=== PATIENT | female | born 1945 | race Caucasian/White ===

== ENCOUNTER 2018-05-22 07:12 | Day surgery (SDC) | payer MEDICARE, OTHER ==
[~2018-05-22] VITALS: Ht 162.6 cm; Wt 90.7 kg
[~2018-05-22 07:12] MED LIST: ALBU90OI INH; ALLEGRA ALLERG180 MG PO; ALPR.25; ALPR.5 PO; BREO ELLIPTA 11 EACH IH; BREO ELLIPTA 11 EACH INH; CAFFERGOT; CALCA400CH; CALCIUM PO; CELE100 PO; CELE200 PO; CEPH500 PO; CETI5 PO; CIPR500 PO; CO Q-10 100 MG1 EACH PO; Cymbalta30 MG; DEXT30SU PO; DONE10 PO; DULO30 PO; ELMIRON PO; ERGO400; ERGO400 PO; ESCI10; ESOM20; ESOM20 PO; EXELON1 EACH TD; FENT50TP; FLUT.05NI; GABA300; GUAI600T33 PO; HYDACE5 PO; HYDCOR2.5A PR; IMMODIUM PO; IRON 100 PLUS1 EACH PO; IRON PO; LEVFLO250 PO; LEVSOD100 PO; LEVSOD50 PO; LEVSOD75; LEVSOD75 PO; LEVSOD88 PO; LOPE2C PO; MAALOX ADVANCE1 EACH PO; MAALOX MAX PO; MAXALT 10 MG; MELO7.5; META400; META800 PO; METAXALL800 MG PO; METO25ER; METR500 PO; MIRT15; MIRT15 PO; MIRT30 PO; MIRTAZAPINE 45 MG; MONT10T; MONT5TCH PO; MULVITB PO; Maxalt10 MG; Maxalt10 MG PO; NITR100 PO; NITR50 PO; NORT25 PO; NORT75 PO; Nasal Spray30 ML NS; OMEP20ER; ONDA4 PO; ONDA4ODT MM; OXYACE5T PO; Omeprazole20 M1; Omeprazole20 M1 PO; PREG100 PO; PREG75 PO; PROBIOTIC1 EAC1 PO; PROC10 PO; PROCTOSOL-HC30 GM; PROCTOSOL-HC30 GM PR; PROM25 PO; Proctosol HC30 GM; RIZA; RIZA PO; RIZATRIPTAN10 MG PO; Remeron45 MG PO; SERT25 PO; SUCR1; SUCR1 PO; SUMA25; SUMA25 PO; Synthroid88 MCG PO; TOPI50 PO; TRAM50 PO; TRAZ100; VITAMIN E200 UNIT PO; Ventolin/Prove6.7 GM INH; [UNRECOGNIZED DRUG - OTHER] PO; [UNRECOGNIZED DRUG - OTHER] PO; [UNRECOGNIZED DRUG - REMARK]
--- NOTE | 2018-05-22 11:07 | NUR ---
PT UP TO BATHROOM TO VOID. PRE-MEDS AND NOZIN NASAL SWABS GIVEN.
--- NOTE | 2018-05-22 11:10 | NUR ---
RECEIVED REPORT FROM FRANCY MARTINEZ. WILL ASSUME CARE OF PT. PT HAS FAMILY AT BEDSIDE. NO COMPLAINTS AT THIS TIME. WILL GIVE PERIDEX MOUTH WASH WHEN DR VELARDE SEES PT. WAITING FOR MD AND OR STEAM BLOCKER TO SEE PT WELL.
--- NOTE | 2018-05-22 11:36 | NUR ---
DIRECTOR EDUCATIONAL RADIO (ERIC) AT BEDSIDE. REPORT DONE
--- NOTE | 2018-05-22 11:58 | NUR ---
DR VELARDE LOOKED OVER PT CHART. ORDERED 1MG IV VERSED PRE-OP. PT UP TO THE BATHROOM.
--- NOTE | 2018-05-22 12:05 | NUR ---
1200 1 MG IV VERSED GIVEN.
--- NOTE | 2018-05-22 17:39 | NUR ---
SHIFT SUMMARY PT EATING AND DRINKING. PT FAMILY IN/OUT OF ROOM. PT BEEN ASSISTED WITH ADL'S PRN. PT VOIDED SINCE SURGERY. PT CONT TO REPORT NUMBNESS R/T SPINAL. PT SPEECH CLEAR. VSS. PT WAS CLEANED UP EARLIER WITH ASSIST FROM FEMALE RN, LINEN INCLUDING GOWN CHANGED.
--- NOTE | 2018-05-22 19:38 | NUR ---
MEDICATION CLARIFIED WITH FAMILY AND PHARMACY, DISCUSSED WITH PNEUMATIC TOOL REPAIRER.
[2018-05-23 05:29] LABS: BASOPHILS ABSOLUTE AUTO 0.04 K/mm3 (0.00-0.23); BASOPHILS PERCENT AUTO 1 % (0-2); EOSINOPHILS PERCENT AUTO 1 % (0-6); Hematocrit 36.9 % (33.0-51.0); Hemoglobin 11.7 g/dL (11.5-16.0); IMMATURE GRAN ABSOLUTE AUTO 0.02 K/mm3 (0.00-0.10); IMMATURE GRAN PERCENT AUTO 0 % (0-1); LYMPHOCYTES ABSOLUTE AUTO 1.78 K/mm3 (0.84-5.20); LYMPHOCYTES PERCENT AUTO 20 % (21-46); MONOCYTES ABSOLUTE AUTO 0.91 K/mm3 (0.16-1.47); MONOCYTES PERCENT AUTO 10 % (4-13); Mean Corpuscular HGB 30.5 pg (26.0-34.0); Mean Corpuscular HGB Conc 31.7 g/dL (31.5-36.5); Mean Corpuscular Volume 96 fL (80-100); Mean Platelet Volume 12.1 fL (9.1-12.4); NEUTROPHILS PERCENT AUTO 68 % (41-73); Platelet Count 145 K/mm3 (150-400); RDW Coefficient Variation 12.6 % (11.7-14.2); RDW Standard Deviation 44.6 fL (35.1-46.3); Red Blood Cell Count 3.83 M/mm3 (3.80-5.20); White Blood Cell Count 8.85 K/mm3 (4.00-11.30)
[2018-05-23 06:05] LABS: Calcium, Blood 8.4 mg/dL (8.5-10.1); Creatinine, Blood 1.08 mg/dL (0.40-1.00); Magnesium, Blood 2.3 mg/dL (1.6-2.4); Potassium, Blood 4.2 mmol/L (3.5-5.5)
--- NOTE | 2018-05-23 06:13 | NUR ---
SUMMARY NO ACUTE CHANGES NOTED FROM ASSESSMENT. DRSG REMAINS C/D/I. PT IS 1 PERSON ASSIST W/FWW & GAIT BELT. PAIN MANAGED PER EMAR. TOLERATING PO INTAKE. SCD'S AND POLAR PACK IN PLACE. CALL LIGHT IN REACH, WCTM
--- NOTE | 2018-05-23 13:47 | NUR ---
PT IV DC'D WNL.
[2018-05-23] MEDS ORDERED: ACET500 PO (14:13)
[2018-05-23] MEDS ORDERED: OXYC5 PO (14:14)
[2018-05-23] MEDS ORDERED: Aspir 8181 MG PO (14:23)
--- NOTE | 2018-05-23 14:32 | NUR ---
DISCHARGE: PT EATING AND DRINKING WELL. PT REPORTS PAIN TOLERABLE ON PO PAIN MEDICATION. PT AND FAMILY REPORTS UNDERSTANDING OF DISCHARGE INSTRUCTIONS INCLUDING ICE MACHINE. PT SENT WITH BELONGINGS INCLUDING ICE MACHINE AND SCRIPT. PT/FAMILY REPORTS HAVING WALKER AT HOME. PT SENT WITH DRESSINGS. ORTHO COORDINATOR ALSO DISCUSSED DISCHARGE INSTRUCTIONS. PT VOIDING AND PASSING GAS.
== END 2018-05-23 14:37 | disposition home or self-care (01) ==
LOC: ORSCMMR 07:12 → EDSTATUS 11:15 → ORSCMMR 11:15 → SURS 15:30 → ORSCMMR 05-23 14:37
PROVIDERS: Orthopaedic Surgery
PROC: 0SRD0J9 Replacement of Left Knee Joint with Synthetic Substitute, Cemented, Open Approach (ICD-10-PCS; principal; 2018-05-22 11:15)
DX: M17.12 Unilateral primary osteoarthritis, left knee (principal); J45.909 Unspecified asthma, uncomplicated; K21.9 Gastro-esophageal reflux disease without esophagitis; Z79.899 Other long term (current) drug therapy; E66.9 Obesity, unspecified; Z68.34 Body mass index [BMI] 34.0-34.9, adult
CPT/HCPCS: 36415; 73560-LT; 80048; 83735; 85025; 88300; 94640; 94760; 97110; 97116; 97161; 97530; C1713; C1776; G8978; G8979; G8980; J0171; J0690; J0735; J1885; J2250; J2405; J2795; J3010; J7120

== ENCOUNTER 2018-06-19 17:49 | Emergency (ER) | payer MEDICARE, OTHER ==
[~2018-06-19] VITALS: Ht 160 cm; Wt 90.7 kg
[~2018-06-19 17:49] MED LIST changes: +ACET500 PO; +Aspir 8181 MG PO; +OXYC5 PO
[2018-06-19] MEDS ORDERED: ESOM20 (18:14)
[2018-06-19] MEDS ORDERED: DONE10 PO (18:17)
== END 2018-06-19 20:50 | disposition home or self-care (01) ==
LOC: ER 17:49
DX: S00.03XA Contusion of scalp, initial encounter (principal); Z88.0 Allergy status to penicillin; Z88.1 Allergy status to other antibiotic agents; Z88.5 Allergy status to narcotic agent; Z88.8 Allergy status to other drugs, medicaments and biological substances; Z79.899 Other long term (current) drug therapy; Z79.82 Long term (current) use of aspirin; Z87.891 Personal history of nicotine dependence; W19.XXXA Unspecified fall, initial encounter
CPT/HCPCS: 70450; 73502; 73562-LT

== ENCOUNTER 2018-10-21 18:49 | Observation (INO) | payer MEDICARE, OTHER ==
[~2018-10-21] VITALS: Ht 157.5 cm; Wt 87.8 kg
[~2018-10-21 18:49] MED LIST changes: +LEVSOD112 PO; -LEVSOD88 PO
[2018-10-21 19:33] LABS: BASOPHILS ABSOLUTE AUTO 0.07 K/mm3 (0.00-0.23); BASOPHILS PERCENT AUTO 1 % (0-2); EOSINOPHILS ABSOLUTE AUTO 0.13 K/mm3 (0.00-0.68); EOSINOPHILS PERCENT AUTO 2 % (0-6); Hematocrit 43.9 % (33.0-51.0); Hemoglobin 13.7 g/dL (11.5-16.0); IMMATURE GRAN ABSOLUTE AUTO 0.02 K/mm3 (0.00-0.10); IMMATURE GRAN PERCENT AUTO 0 % (0-1); LYMPHOCYTES ABSOLUTE AUTO 1.15 K/mm3 (0.84-5.20); LYMPHOCYTES PERCENT AUTO 14 % (21-46); MONOCYTES ABSOLUTE AUTO 0.96 K/mm3 (0.16-1.47); MONOCYTES PERCENT AUTO 12 % (4-13); Mean Corpuscular HGB 29.8 pg (26.0-34.0); Mean Corpuscular HGB Conc 31.2 g/dL (31.5-36.5); Mean Corpuscular Volume 95 fL (80-100); Mean Platelet Volume 10.7 fL (9.1-12.4); NEUTROPHILS ABSOLUTE AUTO 5.81 K/mm3 (1.96-9.15); NEUTROPHILS PERCENT AUTO 71 % (41-73); Platelet Count 175 K/mm3 (150-400); RDW Coefficient Variation 13.4 % (11.7-14.2); RDW Standard Deviation 47.1 fL (35.1-46.3); White Blood Cell Count 8.14 K/mm3 (4.00-11.30)
[2018-10-21 19:58] LABS: Alanine Aminotransfer (ALT/SGP 17 U/L (12-78); Albumin, Blood 3.5 g/dL (3.4-5.0); Albumin/Globulin Ratio 0.9 (0.8-1.8); Alk Phos 83 U/L (50-136); Anion Gap 5 mmol/L (6-16); Aspartate Aminotrans (AST/SGOT 19 U/L (12-37); Bilirubin, Total 0.3 mg/dL (0.1-1.0); Blood Urea Nitrogen 13 mg/dL (8-24); Bun/Creatinine Ratio 12.5 (12.0-20.0); CO2, Blood 30 mmol/L (21-32); Chloride, Blood 105 mmol/L (98-108); Creatinine, Blood 1.04 mg/dL (0.40-1.00); Globulin, Blood 4.1 g/dL (2.2-4.0); Glomerular Filtration Rate 55 (60-); Glucose, Blood 71 mg/dL (70-99); Potassium, Blood 3.8 mmol/L (3.5-5.5); Sodium, Blood 140 mmol/L (136-145); Total Protein, Blood 7.6 g/dL (6.4-8.2); Troponin I <0.015 ng/mL (0.000-0.040)
--- NOTE | 2018-10-22 07:18 | NUR ---
NOC SHIFT SUMMARY PT WAS ADMITTED THIS NIGHT FOR CHEST PAIN, AND POSSIBLE ACS/PE. SHE HAS BEEN VERY PLEASANT AND COOPERATIVE WITH CARE. VSS. AT AROUND 0400 THIS MORNING PT STARTED COMPLAINING OF CHEST PAIN UNDER HER L ARMPIT AND WRAPPING AROUND L BREAST. DESCRIBED DULL/SHARP 5/10 AND "THE SAME PAIN THE MADE ME COME HERE". ADMINISHTERED NITRO THREE TIMES WITH LITTLE IMPROVEMENT. VSS. PT DENIES ANY N/V SOB, DIZZINESS, OR CALMY SKIN. CALLED TO DR. ZHENG. HE BELIEVES VERY LOW CHANCE OF ACS AND ORDERED TYLENOL. TROPONIN AT 0200 WAS NEGATIVE. PT CURRENTLY RESTING IN BED AND PAIN HAS IMPROVED SLIGHTLY. OTHER THAN THE CHEST DISCOMFORT PT HAS NO COMPLAINTS. REPORT TO ONCOMING RN.
--- NOTE | 2018-10-22 10:29 | NUR ---
Echocardiogram completed.
--- NOTE | 2018-10-22 12:03 | NUR ---
THIS PT IS ALERT AND ORIENTED TO HERSELF AND FAMILY. SHE BECAME INCREASINGLY CONFUSED THIS AFTERNOON. HER IS AT THE BEDSIDE NOW. SHE UNDERWENT THE STRESS TEST TODAY. SHE AMBULATES TO THE RESTROOM, SHE DOES HAVE A HX OF STRESS INCONTINENCE. SHE IS FRIENDLY AND KIND. WILL KADE TO MONITOR
[2018-10-22] MEDS ORDERED: NITR.6SL SL (15:59)
[2018-10-22] MEDS ORDERED: DONE10 PO (16:00)
--- NOTE | 2018-10-22 16:45 | NUR ---
PT DISCHARGED AT 1630. IV DISCHARGED.
== END 2018-10-22 16:43 | disposition home or self-care (01) ==
LOC: ER 18:49 → MEDS 18:50
PROVIDERS: Emergency Medicine; ADMIT Hospitalist
DX: R07.9 Chest pain, unspecified (principal); R55 Syncope and collapse; N18.3 Chronic kidney disease, stage 3 (moderate); K21.9 Gastro-esophageal reflux disease without esophagitis; E03.9 Hypothyroidism, unspecified; F03.90 Unspecified dementia, unspecified severity, without behavioral disturbance, psychotic disturbance, mood disturbance, and anxiety; F32.9 Major depressive disorder, single episode, unspecified; G43.909 Migraine, unspecified, not intractable, without status migrainosus; M19.90 Unspecified osteoarthritis, unspecified site; Z88.0 Allergy status to penicillin; Z88.1 Allergy status to other antibiotic agents; Z88.8 Allergy status to other drugs, medicaments and biological substances; Z88.5 Allergy status to narcotic agent; Z79.899 Other long term (current) drug therapy
CPT/HCPCS: 36415; 71046; 71260; 78452; 80053; 83880; 84484; 85025; 93005; 93010; 93017; 93306; 96372; 97161; 99285-25; A9500; G0378; J0706; J1650; J2785; Q9967

== ENCOUNTER 2018-10-24 15:58 | Emergency (ER) | payer MEDICARE, OTHER ==
[~2018-10-24] VITALS: Ht 157.5 cm; Wt 86.2 kg
[~2018-10-24 15:58] MED LIST changes: +NITR.6SL SL
[2018-10-24 16:59] LABS: BASOPHILS ABSOLUTE AUTO 0.06 K/mm3 (0.00-0.23); BASOPHILS PERCENT AUTO 1 % (0-2); EOSINOPHILS ABSOLUTE AUTO 0.29 K/mm3 (0.00-0.68); EOSINOPHILS PERCENT AUTO 5 % (0-6); Hematocrit 41.5 % (33.0-51.0); IMMATURE GRAN ABSOLUTE AUTO 0.02 K/mm3 (0.00-0.10); IMMATURE GRAN PERCENT AUTO 0 % (0-1); LYMPHOCYTES ABSOLUTE AUTO 1.86 K/mm3 (0.84-5.20); LYMPHOCYTES PERCENT AUTO 34 % (21-46); MONOCYTES ABSOLUTE AUTO 0.68 K/mm3 (0.16-1.47); MONOCYTES PERCENT AUTO 13 % (4-13); Mean Corpuscular HGB 29.8 pg (26.0-34.0); Mean Corpuscular HGB Conc 31.3 g/dL (31.5-36.5); Mean Corpuscular Volume 95 fL (80-100); Mean Platelet Volume 10.6 fL (9.1-12.4); NEUTROPHILS ABSOLUTE AUTO 2.49 K/mm3 (1.96-9.15); NEUTROPHILS PERCENT AUTO 46 % (41-73); Platelet Count 206 K/mm3 (150-400); RDW Coefficient Variation 13.4 % (11.7-14.2); RDW Standard Deviation 46.6 fL (35.1-46.3); Red Blood Cell Count 4.36 M/mm3 (3.80-5.20)
[2018-10-24 17:28] LABS: Troponin I 0.017 ng/mL (0.000-0.040)
[2018-10-24 17:29] LABS: Albumin, Blood 3.3 g/dL (3.4-5.0); Albumin/Globulin Ratio 0.8 (0.8-1.8); Bilirubin, Total 0.5 mg/dL (0.1-1.0); Calcium, Blood 9.3 mg/dL (8.5-10.1); Creatinine, Blood 1.2 mg/dL (0.40-1.00); Globulin, Blood 3.9 g/dL (2.2-4.0); Potassium, Blood 4.2 mmol/L (3.5-5.5); Total Protein, Blood 7.2 g/dL (6.4-8.2)
== END 2018-10-24 18:02 | disposition home or self-care (01) ==
LOC: ER 15:58
PROVIDERS: Emergency Medicine
DX: R07.9 Chest pain, unspecified (principal); G43.909 Migraine, unspecified, not intractable, without status migrainosus; F32.9 Major depressive disorder, single episode, unspecified; F03.90 Unspecified dementia, unspecified severity, without behavioral disturbance, psychotic disturbance, mood disturbance, and anxiety; N18.9 Chronic kidney disease, unspecified; K21.9 Gastro-esophageal reflux disease without esophagitis; Z79.899 Other long term (current) drug therapy
CPT/HCPCS: 36415; 71046; 80053; 83690; 84484; 85025; 93005; 93010; 96374; 99285-25; J3010

== ENCOUNTER 2018-12-04 08:55 | Emergency (ER) | payer MEDICARE, OTHER ==
[~2018-12-04] VITALS: Ht 157.5 cm; Wt 86.2 kg
[2018-12-04 10:03] LABS: BASOPHILS ABSOLUTE AUTO 0.06 K/mm3 (0.00-0.23); BASOPHILS PERCENT AUTO 1 % (0-2); EOSINOPHILS ABSOLUTE AUTO 0.25 K/mm3 (0.00-0.68); EOSINOPHILS PERCENT AUTO 4 % (0-6); Hematocrit 41.4 % (33.0-51.0); Hemoglobin 12.9 g/dL (11.5-16.0); IMMATURE GRAN ABSOLUTE AUTO 0.01 K/mm3 (0.00-0.10); IMMATURE GRAN PERCENT AUTO 0 % (0-1); LYMPHOCYTES ABSOLUTE AUTO 2.79 K/mm3 (0.84-5.20); LYMPHOCYTES PERCENT AUTO 39 % (21-46); MONOCYTES ABSOLUTE AUTO 0.79 K/mm3 (0.16-1.47); MONOCYTES PERCENT AUTO 11 % (4-13); Mean Corpuscular HGB 30.4 pg (26.0-34.0); Mean Corpuscular HGB Conc 31.2 g/dL (31.5-36.5); Mean Corpuscular Volume 97 fL (80-100); Mean Platelet Volume 10.8 fL (9.1-12.4); NEUTROPHILS ABSOLUTE AUTO 3.28 K/mm3 (1.96-9.15); NEUTROPHILS PERCENT AUTO 46 % (41-73); Platelet Count 163 K/mm3 (150-400); RDW Coefficient Variation 13.2 % (11.7-14.2); Red Blood Cell Count 4.25 M/mm3 (3.80-5.20); White Blood Cell Count 7.18 K/mm3 (4.00-11.30)
[2018-12-04 10:28] LABS: Alanine Aminotransfer (ALT/SGP 25 U/L (12-78); Albumin, Blood 3.2 g/dL (3.4-5.0); Albumin/Globulin Ratio 0.9 (0.8-1.8); Alk Phos 76 U/L (50-136); Anion Gap 2 mmol/L (6-16); Aspartate Aminotrans (AST/SGOT 22 U/L (12-37); Bilirubin, Total 0.5 mg/dL (0.1-1.0); Blood Urea Nitrogen 13 mg/dL (8-24); Bun/Creatinine Ratio 12.4 (12.0-20.0); CO2, Blood 32 mmol/L (21-32); Calcium, Blood 8.7 mg/dL (8.5-10.1); Chloride, Blood 106 mmol/L (98-108); Creatinine, Blood 1.05 mg/dL (0.40-1.00); Globulin, Blood 3.5 g/dL (2.2-4.0); Glomerular Filtration Rate 54 (60-); Glucose, Blood 106 mg/dL (70-99); Sodium, Blood 140 mmol/L (136-145); Total Protein, Blood 6.7 g/dL (6.4-8.2); Troponin I <0.015 ng/mL (0.000-0.040)
== END 2018-12-04 10:54 | disposition home or self-care (01) ==
LOC: ER 08:55
PROVIDERS: Emergency Medicine
DX: R07.9 Chest pain, unspecified (principal); Z88.0 Allergy status to penicillin; Z88.1 Allergy status to other antibiotic agents; Z88.5 Allergy status to narcotic agent; Z88.8 Allergy status to other drugs, medicaments and biological substances; Z79.899 Other long term (current) drug therapy; Z87.891 Personal history of nicotine dependence
CPT/HCPCS: 36415; 71046; 80053; 83690; 84484; 85025; 93005; 93010; 99285-25

== ENCOUNTER 2018-12-18 19:42 | Emergency (ER) | payer MEDICARE, OTHER ==
[~2018-12-18] VITALS: Ht 157.5 cm; Wt 86.2 kg
[2018-12-18 20:24] LABS: BASOPHILS ABSOLUTE AUTO 0.06 K/mm3 (0.00-0.23); BASOPHILS PERCENT AUTO 1 % (0-2); EOSINOPHILS ABSOLUTE AUTO 0.27 K/mm3 (0.00-0.68); EOSINOPHILS PERCENT AUTO 4 % (0-6); Hematocrit 42.6 % (33.0-51.0); Hemoglobin 13.5 g/dL (11.5-16.0); IMMATURE GRAN ABSOLUTE AUTO 0.01 K/mm3 (0.00-0.10); IMMATURE GRAN PERCENT AUTO 0 % (0-1); LYMPHOCYTES ABSOLUTE AUTO 2.19 K/mm3 (0.84-5.20); LYMPHOCYTES PERCENT AUTO 33 % (21-46); MONOCYTES ABSOLUTE AUTO 0.72 K/mm3 (0.16-1.47); MONOCYTES PERCENT AUTO 11 % (4-13); Mean Corpuscular HGB 30.5 pg (26.0-34.0); Mean Corpuscular HGB Conc 31.7 g/dL (31.5-36.5); Mean Corpuscular Volume 96 fL (80-100); Mean Platelet Volume 10.6 fL (9.1-12.4); NEUTROPHILS ABSOLUTE AUTO 3.34 K/mm3 (1.96-9.15); NEUTROPHILS PERCENT AUTO 51 % (41-73); Platelet Count 186 K/mm3 (150-400); RDW Coefficient Variation 13.1 % (11.7-14.2); RDW Standard Deviation 46.7 fL (35.1-46.3); Red Blood Cell Count 4.43 M/mm3 (3.80-5.20); White Blood Cell Count 6.59 K/mm3 (4.00-11.30)
[2018-12-18 20:45] LABS: Alanine Aminotransfer (ALT/SGP 28 U/L (12-78); Albumin, Blood 3.5 g/dL (3.4-5.0); Albumin/Globulin Ratio 0.9 (0.8-1.8); Alk Phos 81 U/L (50-136); Anion Gap 4 mmol/L (6-16); Aspartate Aminotrans (AST/SGOT 28 U/L (12-37); Bilirubin, Total 0.3 mg/dL (0.1-1.0); Blood Urea Nitrogen 13 mg/dL (8-24); Bun/Creatinine Ratio 11.3 (12.0-20.0); CO2, Blood 29 mmol/L (21-32); Calcium, Blood 8.9 mg/dL (8.5-10.1); Chloride, Blood 107 mmol/L (98-108); Creatinine, Blood 1.15 mg/dL (0.40-1.00); Glomerular Filtration Rate 49 (60-); Glucose, Blood 187 mg/dL (70-99); Sodium, Blood 140 mmol/L (136-145); Total Protein, Blood 7.5 g/dL (6.4-8.2); Troponin I <0.015 ng/mL (0.000-0.040)
== END 2018-12-19 01:25 | disposition home or self-care (01) ==
LOC: ER 19:42
PROVIDERS: Physician Assistant
DX: R07.9 Chest pain, unspecified (principal); Z88.0 Allergy status to penicillin; Z88.1 Allergy status to other antibiotic agents; Z88.5 Allergy status to narcotic agent; Z88.8 Allergy status to other drugs, medicaments and biological substances; Z79.899 Other long term (current) drug therapy; Z87.891 Personal history of nicotine dependence
CPT/HCPCS: 36415; 71046; 80053; 83880; 84484; 85025; 93005; 93010; 99285-25

== ENCOUNTER 2019-05-12 16:31 | Emergency (ER) | payer MEDICARE, OTHER ==
[~2019-05-12] VITALS: Ht 157.5 cm; Wt 89.4 kg
[2019-05-12 17:31] LABS: BASOPHILS ABSOLUTE AUTO 0.11 K/mm3 (0.00-0.23); BASOPHILS PERCENT AUTO 2 % (0-2); EOSINOPHILS ABSOLUTE AUTO 0.35 K/mm3 (0.00-0.68); EOSINOPHILS PERCENT AUTO 6 % (0-6); Hematocrit 45.1 % (33.0-51.0); Hemoglobin 14.3 g/dL (11.5-16.0); IMMATURE GRAN ABSOLUTE AUTO 0.01 K/mm3 (0.00-0.10); IMMATURE GRAN PERCENT AUTO 0 % (0-1); LYMPHOCYTES PERCENT AUTO 33 % (21-46); MONOCYTES ABSOLUTE AUTO 0.76 K/mm3 (0.16-1.47); MONOCYTES PERCENT AUTO 13 % (4-13); Mean Corpuscular HGB 30.6 pg (26.0-34.0); Mean Corpuscular HGB Conc 31.7 g/dL (31.5-36.5); Mean Corpuscular Volume 96 fL (80-100); NEUTROPHILS ABSOLUTE AUTO 2.79 K/mm3 (1.96-9.15); NEUTROPHILS PERCENT AUTO 46 % (41-73); Platelet Count 194 K/mm3 (150-400); RDW Coefficient Variation 12.9 % (11.7-14.2); RDW Standard Deviation 45.7 fL (35.1-46.3); Red Blood Cell Count 4.68 M/mm3 (3.80-5.20); White Blood Cell Count 6.02 K/mm3 (4.00-11.30)
[2019-05-12 17:55] LABS: Alanine Aminotransfer (ALT/SGP 29 U/L (12-78); Albumin, Blood 3.7 g/dL (3.4-5.0); Albumin/Globulin Ratio 0.9 (0.8-1.8); Alk Phos 85 U/L (50-136); Anion Gap 4 mmol/L (6-16); Aspartate Aminotrans (AST/SGOT 30 U/L (12-37); Bilirubin, Total 0.5 mg/dL (0.1-1.0); Blood Urea Nitrogen 13 mg/dL (8-24); Bun/Creatinine Ratio 10.7 (12.0-20.0); CO2, Blood 28 mmol/L (21-32); Calcium, Blood 9.6 mg/dL (8.5-10.1); Chloride, Blood 107 mmol/L (98-108); Creatinine, Blood 1.21 mg/dL (0.40-1.00); Globulin, Blood 4.2 g/dL (2.2-4.0); Glomerular Filtration Rate 46 (60-); Glucose, Blood 116 mg/dL (70-99); Potassium, Blood 5.1 mmol/L (3.5-5.5); Sodium, Blood 139 mmol/L (136-145); Total Protein, Blood 7.9 g/dL (6.4-8.2); Troponin I <0.015 ng/mL (0.000-0.040)
[2019-05-12] MEDS ORDERED: LOSA50 PO ×2 (19:41→19:42)
== END 2019-05-12 23:00 | disposition home or self-care (01) ==
LOC: ER 16:31
PROVIDERS: Emergency Medicine
DX: R07.9 Chest pain, unspecified (principal); Z87.891 Personal history of nicotine dependence; Z88.5 Allergy status to narcotic agent; Z88.8 Allergy status to other drugs, medicaments and biological substances; Z88.1 Allergy status to other antibiotic agents; Z79.899 Other long term (current) drug therapy
CPT/HCPCS: 36415; 71046; 71260; 80053; 83880; 84484; 85025; 85379; 93005; 93010; 96360; 99284-25; J7030; Q9967

== ENCOUNTER → 2019-06-13 | Outpatient (CLI) | payer MEDICARE, OTHER ==
[~2019-06-13] MED LIST changes: +LOSA50 PO
[2019-06-15 15:07] LABS: HPV 16 Negative (Negative); HPV 18 Negative (Negative); HPV OTHER HR TYPES Negative (Negative)
== END | disposition home or self-care (01) ==
LOC: LAB SHORT 20:04 → LAB 20:04
PROVIDERS: Obstetrics & Gynecology Gynecology
DX: Z91.89 Other specified personal risk factors, not elsewhere classified (principal)
CPT/HCPCS: 87624; G0123

== ENCOUNTER 2019-07-26 07:30 | Day surgery (SDC) | payer MEDICARE, OTHER ==
--- NOTE | 2019-07-19 07:54 | NUR ---
0710 ANBY TO [facility], CONFIRMED CTA PROCEDURE, HR75. 0730 3 ATTEMPTS FOR IV START. [address] TECH AND PT CREATININE ELEVATED.MARLENY WAITING TO HEAR FROM REGARDING CREATINE WILL ATTEMPT IV AGAIN 0755 UNABLE TO OVTAIN IV ACCESS. PT CANCELLED PER SAFETY COMPLIANCE SPECIALIST. EXPLAINED SITUATION WITH PATIENT AND BOTH VERBALIZE UNDERSTANDING
--- NOTE | 2019-07-26 08:41 | NUR ---
Ambulatory in Day Surgery History, Chart, Medications and Allergies reviewed before start of procedure.Patient confirms NPO status and agrees with scheduled CTA.
--- NOTE | 2019-07-26 09:42 | NUR ---
Patient up to Ambulate independently. Gait steady. Discharge instructions reviewed with patient. Patient verbalizes understanding. Copy given to patient to take home.AMBULATORY AT DISCHARGE WITH SON.
== END 2019-07-26 23:04 | disposition home or self-care (01) ==
LOC: CT 07:30 → ORD 07:30
DX: R07.89 Other chest pain (principal); I25.10 Atherosclerotic heart disease of native coronary artery without angina pectoris; E11.22 Type 2 diabetes mellitus with diabetic chronic kidney disease; I13.0 Hypertensive heart and chronic kidney disease with heart failure and stage 1 through stage 4 chronic kidney disease, or unspecified chronic kidney disease; N18.3 Chronic kidney disease, stage 3 (moderate); I50.9 Heart failure, unspecified; D63.1 Anemia in chronic kidney disease; M19.90 Unspecified osteoarthritis, unspecified site; M06.9 Rheumatoid arthritis, unspecified; F32.9 Major depressive disorder, single episode, unspecified; F41.9 Anxiety disorder, unspecified; M79.7 Fibromyalgia; E03.9 Hypothyroidism, unspecified; E78.5 Hyperlipidemia, unspecified; M81.0 Age-related osteoporosis without current pathological fracture; K21.9 Gastro-esophageal reflux disease without esophagitis; G43.109 Migraine with aura, not intractable, without status migrainosus; K58.9 Irritable bowel syndrome, unspecified; J44.9 Chronic obstructive pulmonary disease, unspecified; Z87.891 Personal history of nicotine dependence; Z88.1 Allergy status to other antibiotic agents; Z88.5 Allergy status to narcotic agent; Z88.8 Allergy status to other drugs, medicaments and biological substances; Z79.82 Long term (current) use of aspirin; Z79.899 Other long term (current) drug therapy
CPT/HCPCS: 75574; Q9967

== ENCOUNTER → 2019-08-06 | Outpatient (CLI) | payer MEDICARE, OTHER | END | disposition home or self-care (01) | LOC: LAB EV 16:28 → LAB SHORT 16:28 | DX: N39.0 Urinary tract infection, site not specified (principal) | CPT/HCPCS: 87077; 87086; 87186 ==

== ENCOUNTER 2019-08-21 10:31 | Day surgery (SDC) | payer MEDICARE, OTHER ==
[~2019-08-21] VITALS: Ht 157.5 cm; Wt 92.0 kg
[~2019-08-21 10:31] MED LIST changes: +ATOR20 PO; +LOSA25 PO; +METO25ER PO; +RIVASTIGMINE1 EAC1 TD; +SPIR25 PO; +THERA-D2000 UNIT PO; +TOCO1000 PO; +TUMS500 MG
[2019-08-21] MEDS ORDERED: DULO60 PO (11:28)
[2019-08-21] MEDS ORDERED: Nitro-Dur1 EAC5 TD (11:29)
[2019-08-21] MEDS ORDERED: NORT25 PO (11:30)
[2019-08-21] MEDS ORDERED: SPIR25 PO (11:30)
[2019-08-21] MEDS ORDERED: OMEP20ER PO (11:33)
--- NOTE | 2019-08-21 13:46 | NUR ---
1310 PATIENT RETURNS FROM THE INTERLOCKING PAVEMENT INSTALLER S/P TWO NEW STENTS IN THE LAD. PATIENT IN THE RECLINER. FAMILY TO THE BEDSIDE. PATIENT STATED A SLIGHT AMOUNT OF NAUSEA. GIVEN SALTINE CRAKERS AND SPRITE. SHE HAD PLAVIX ORALLY IN THE LAB AND THIS HELPS COAT THE STOMACH. VVS, TR ABND IN PLACE WITH 11 MLS OF AIR IN THE BAND.
--- NOTE | 2019-08-21 13:54 | NUR ---
1345 DR. VALDEZ AT THE BEDSIDE. SPOKE WITH PATIENT AND FAMILY AND ALL QUESTIONS ANSWERED. LUNCH TRAY SERVED AND PATIENT SITTING UP IN THE RECLINER FEEDING SELF. FAMILY REMAINS AT THE BEDSIDE.
--- NOTE | 2019-08-21 14:12 | NUR ---
1410 PATIENT NAUSEATED AND VOMITING. TRAY TAKEN AWAY AND EMESIS BAG GIVEN TO THE PATIENT. ZOFRAN 4 MG PIV GIVEN ORDERED BY DR. VALDEZ. 1420 NAUSEA SUBSIDED.
--- NOTE | 2019-08-21 14:51 | NUR ---
1430 PATIENT REALLY WANTING TO LIE DOWN IN THE BED. TRANSFERED FROM THE RECLINER TO THE BED AND HOB UP 30 DEGREES. PATIENT STATED THIS WAS MORE COMFORTABLE. NAUSEA AND PAIN EASING. FAMILY AT THE BEDSIDE.
[2019-08-21] MEDS ORDERED: CLOP75 PO (15:10)
--- NOTE | 2019-08-21 16:37 | NUR ---
[address] VALDEZ OF CONTINUED CHEST BURNING AND NAUSEA. STAT EKG ORDERED, GAVE 30MG OF MAALOX AND 15 ML OF VISCOUS LIDOCAINE BOTH ORAL. ENCOURAGED PATIENT TO NOT DRINK FOR 30 MINUTES. 1618 STAT EKG OBTAINED. 1620 DR. VALDEZ AT THE BEDSIDE AND ASSESSED PATIENT. EKG REVIEWED. ORDERED PROTONIX AND PHENERGAN PIV, ORDERED FROM THE PHARMACY.
--- NOTE | 2019-08-21 16:47 | NUR ---
1645 PATIENT UP TO THE RESTROOM, HAD BM AND VOIDED. ASSISTED BACK TO THE BED. AWAITING ROOM ASSIGNMENT FOR OVERNIGHT OBSERVATION.
--- NOTE | 2019-08-21 17:22 | NUR ---
1720 PATIENT RESTING QUIETLY, CONFUSED FROM THE PHENERGAN DOSE EARLIER. PATIENT PICKING AT PIV SITE (WRAPPED IN COBAN) AND TR BAND SITE (ADJUSTED THE ARMBOARD TO HIDE THE TR BAND. SR UP X TWO AND ONE ON ONE MONITORING.
[2019-08-21 18:53] LABS: Hemoglobin 11.4 g/dL (11.5-16.0); Mean Platelet Volume 10.7 fL (9.1-12.4); Platelet Count 156 K/mm3 (150-400)
--- NOTE | 2019-08-21 20:11 | NUR ---
PT IS AAOXC4 RESP E/U ON RA. VSS. DENIES ANY PAIN OR DISCOMFORT. DENIES NAUSEA AT THIS TIME. PRESENTLY EATING A CUP OF FRUIT. NO ACUTE CONCERNS AT THIS TIME. PATCH ON R WRIST IS C/D/I NO SWELLING OR EDEMA.
--- NOTE | 2019-08-21 23:19 | NUR ---
VSS. PT DENIES ANY DISCOMFORT OR NAUSEA. RESP E/U ON RA. PUNCTURE SITE C/D/I ON R WRIST. TELE SR RATE 75 PER CANE WEIGHER HELPER. APPEARS IN NO ACUTE DISTRESS. SCD'S WATER OPERATOR LIGHT IN REACH. BED ALARM ON.
--- NOTE | 2019-08-22 05:37 | NUR ---
NOC SHIFT SUMMARY PT IS PLEASANT AND COOPERATIVE WITH CARE. VSS. AAOX4. RESP EVEN AND UNLABORED. STANDBY ASSIST. TWO STENTS PLACED IN RCA YESTERDAY. R WRIST ACCESS SITE IS C/D/I. NO COMPLAINTS OF PAIN AT THE SITE. PT STATES SHE HAS A HX OF RHEUMATOID ARTHRITIS SINCE SHE WAS A TEEN. COMPLAINED OF ARTHRITIC PAIN AND WAS VERY SPECIFIC THAT THIS IS NORMAL ARTHRITIC PAIN IN HER BACK AND ARMS. STATES SHE NORMALLY TAKES CELEBREX FOR THIS. CALLED TO HOSPITALIST AND OBTAINED ORDER. CALLED TO PHARMACIST TO CHECK INTERACTIONS WITH PRESENT ANTIPLATELET THERAPY. PER PHARMACIST THIS IS FINE. TELE IS ON AND IS PRESENTLY SR AT 64 PER STUMP BLOWER. PT IS PRESENTLY READING A NEWSPAPER AND APPEARS IN NO ACUTE DISTRESS. WILL CONTINUE TO MONITOR.
--- NOTE | 2019-08-22 07:15 | NUR ---
ASSUMED PATIENT CARE. PATIENT ALERT AND SPEAKING WITH NURSING STAFF DURING HAND-OFF. WRIST SURGICAL WOUND ASSESSED, NO DRAINAGE AND SOME BRUISING NOTED. PATIENT RESTING COMFORTABLY IN BED, NO SIGNS OF ACUTE DISTRESS.
[2019-08-22] MEDS ORDERED: PANT40 PO (11:08)
--- NOTE | 2019-08-22 11:52 | NUR ---
PATIENT DISCHARGED. PROVIDED DISCHARGE INFO PER JUAN GIBSON. PATIENT LEFT VIA WHEELCHAIR, NO SIGNS OF ACUTE DISTRESS.
== END 2019-08-22 11:52 | disposition home or self-care (01) ==
LOC: MHTC 10:31 → PCU 16:44 → MHTC 08-22 11:52
PROVIDERS: Internal Medicine Interventional Cardiology
DX: I25.10 Atherosclerotic heart disease of native coronary artery without angina pectoris (principal); E78.5 Hyperlipidemia, unspecified; Z88.5 Allergy status to narcotic agent; Z95.5 Presence of coronary angioplasty implant and graft; Z79.899 Other long term (current) drug therapy
CPT/HCPCS: 36415; 85014; 85018; 85049; 85347; 92978; 93005; 93010; 93454; 99152; 99153; A9270; A9270-GY; C1725; C1753; C1769; C1874; C1887; C1894; C9113; C9600; J0461; J1644; J2250; J2405; J2550; J3010; J7030; J7040; Q9967

== ENCOUNTER 2019-08-29 19:14 | Observation (INO) | payer MEDICARE, OTHER ==
[~2019-08-29] VITALS: Ht 157.5 cm; Wt 90.7 kg
[~2019-08-29 19:14] MED LIST changes: +CLOP75 PO; +DULO60 PO; +Nitro-Dur1 EAC5 TD; +OMEP20ER PO; +PANT40 PO
[2019-08-29 20:16] LABS: BASOPHILS ABSOLUTE AUTO 0.05 K/mm3 (0.00-0.23); BASOPHILS PERCENT AUTO 1 % (0-2); EOSINOPHILS ABSOLUTE AUTO 0.25 K/mm3 (0.00-0.68); EOSINOPHILS PERCENT AUTO 4 % (0-6); Hematocrit 40.1 % (33.0-51.0); IMMATURE GRAN ABSOLUTE AUTO 0.01 K/mm3 (0.00-0.10); IMMATURE GRAN PERCENT AUTO 0 % (0-1); LYMPHOCYTES PERCENT AUTO 30 % (21-46); MONOCYTES ABSOLUTE AUTO 0.85 K/mm3 (0.16-1.47); MONOCYTES PERCENT AUTO 14 % (4-13); Mean Corpuscular HGB 30.7 pg (26.0-34.0); Mean Corpuscular HGB Conc 32.4 g/dL (31.5-36.5); Mean Corpuscular Volume 95 fL (80-100); Mean Platelet Volume 11.4 fL (9.1-12.4); NEUTROPHILS ABSOLUTE AUTO 3.18 K/mm3 (1.96-9.15); NEUTROPHILS PERCENT AUTO 51 % (41-73); Platelet Count 166 K/mm3 (150-400); RDW Coefficient Variation 12.8 % (11.7-14.2); Red Blood Cell Count 4.24 M/mm3 (3.80-5.20); White Blood Cell Count 6.24 K/mm3 (4.00-11.30)
[2019-08-29 20:34] LABS: Albumin, Blood 3.5 g/dL (3.4-5.0); Albumin/Globulin Ratio 0.9 (0.8-1.8); Bilirubin, Total 0.6 mg/dL (0.1-1.0); Bun/Creatinine Ratio 14.3 (12.0-20.0); Calcium, Blood 9.6 mg/dL (8.5-10.1); Creatinine, Blood 1.33 mg/dL (0.40-1.00); Globulin, Blood 4.1 g/dL (2.2-4.0); Potassium, Blood 3.9 mmol/L (3.5-5.5); Total Protein, Blood 7.6 g/dL (6.4-8.2)
[2019-08-29 22:43] LABS: International Normalized Ratio 1.02; Prothrombin Time Results 10.9 Sec (9.7-11.5)
[2019-08-29] MEDS ORDERED: PREG100 PO (23:57)
--- NOTE | 2019-08-30 00:17 | NUR ---
ADMIT NOTE HANDOFF RECEIVED FROM ER NURSE SHANIQUE. PT ARRIVED TO FLOOR VIA GURNEY. AT BEDSIDE. PERSONAL POSSESSIONS BROUGHT TO UNIT WITH PT. PT ORIENTED TO UNIT. CALL BUTTON WITHIN REACH.
--- NOTE | 2019-08-30 04:22 | NUR ---
SHIFT SUMMARY ADMITTED FOR FERNANDO BLEED FROM THE RECTUM. FULL CODE. PT HAD 2 STENTS PLACED LAST TUESDAY AND WAS STARTED ON PLAVIX. SHE BECAME CONSTIPATED, GAVE HERSELF AN ENEMA. SHE NOTED BLOODY DIARRHEA FOLLOWING THAT. SHE IS ON A REGULAR DIET, A&O X4, INDEPENDENT IN ROOM, SCD'S IN PLACE, RA. PLAN IS TO FOLLOW H&H LABS, AND IF THEY DROP - THEN A GI CONSULT MAY BE NEEDED. HX: CHRONIC BACK PAIN, DEMENTIA, DEPRESSION, MIGRAINES, CKD3, CAD, GERD, OSTEOARTHRITIS, ESOPHAGEAL STRICTURE. NO BLOODY DIARRHEA REPORTED THIS SHIFT. WE HAVE MADE HER NPO AFTER MIDNIGHT IN CASE THERE IS A GI CONSULT TODAY.
[2019-08-30 05:02] LABS: Hematocrit 36.5 % (33.0-51.0); Hemoglobin 11.7 g/dL (11.5-16.0); Mean Corpuscular HGB 30.2 pg (26.0-34.0); Mean Corpuscular HGB Conc 32.1 g/dL (31.5-36.5); Mean Corpuscular Volume 94 fL (80-100); Mean Platelet Volume 11.4 fL (9.1-12.4); Platelet Count 147 K/mm3 (150-400); RDW Coefficient Variation 12.9 % (11.7-14.2); RDW Standard Deviation 44.4 fL (35.1-46.3); Red Blood Cell Count 3.87 M/mm3 (3.80-5.20); White Blood Cell Count 6.14 K/mm3 (4.00-11.30)
[2019-08-30 05:40] LABS: Bun/Creatinine Ratio 14.3 (12.0-20.0); Calcium, Blood 9.4 mg/dL (8.5-10.1); Creatinine, Blood 1.4 mg/dL (0.40-1.00); Potassium, Blood 3.9 mmol/L (3.5-5.5)
--- NOTE | 2019-08-30 14:48 | NUR ---
SHIFT SUMMARY PT AWAKE DURING SHIFT REPORT. A&O, PLEASANT AND CO-OP. SLEEPING IN RM AT BS. PT ADMITTED FOR RECTAL BLEED; PROBABLE HEMMOROIDS D/T CONSTIPATION AND SELF GIVEN ENEMA. NO FURTHER BLEEDING SINCE ADMISSION PER PT. DENIED HAVING BLOODY STOOLS. H/H REMAINED STABLE OVERNIGHT; SEE CHART. DR PEÑA IN TO SEE PT. D/C ORDERS PLACED. NO MEDICATION CHANGES MADE. PT ABLE TO DRESS SELF. IV D/C'D WNL. PT ASSISTED OUT TO CAR VIA W/C BY CARMELO.
== END 2019-08-30 11:27 | disposition home or self-care (01) ==
LOC: ER 19:14 → MEDS 19:15 → ENPENDDIS 08-30 11:00 → MEDS 08-30 11:27
PROVIDERS: Emergency Medicine; Physician Assistant; ADMIT Internal Medicine
DX: K64.9 Unspecified hemorrhoids (principal); I25.10 Atherosclerotic heart disease of native coronary artery without angina pectoris; I12.9 Hypertensive chronic kidney disease with stage 1 through stage 4 chronic kidney disease, or unspecified chronic kidney disease; N18.3 Chronic kidney disease, stage 3 (moderate); E03.9 Hypothyroidism, unspecified; F03.90 Unspecified dementia, unspecified severity, without behavioral disturbance, psychotic disturbance, mood disturbance, and anxiety; F32.9 Major depressive disorder, single episode, unspecified; K21.9 Gastro-esophageal reflux disease without esophagitis; Z88.1 Allergy status to other antibiotic agents; Z88.5 Allergy status to narcotic agent; Z79.82 Long term (current) use of aspirin; Z79.899 Other long term (current) drug therapy
CPT/HCPCS: 36415; 80048; 80053; 82272; 85025; 85027; 85610; 85730; 86850; 86900; 86901; 93005; 93010; 96374; 96375; 99285-25; A9270-GY; C9113; G0378; J2405

== ENCOUNTER → 2019-11-05 | Outpatient (CLI) | payer MEDICARE, OTHER ==
[2019-11-07 12:49] LABS: Stool Occult Bld Immuno 1 Negative (NEGATIVE); Stool Occult Bld Immuno 2 Negative (NEGATIVE)
== END | disposition home or self-care (01) ==
LOC: LAB 14:16 → LAB SHORT 14:16 → LAB FUT 09-27 14:10
PROVIDERS: Internal Medicine Gastroenterology
DX: Z12.11 Encounter for screening for malignant neoplasm of colon (principal)
CPT/HCPCS: G0328

== ENCOUNTER → 2020-06-06 | Outpatient (CLI) | payer MEDICARE, OTHER ==
[~2020-06-06] MED LIST changes: +EXELON1 EA11 TD; +MIRALAX17 GM PO; -RIVASTIGMINE1 EAC1 TD
== END | disposition home or self-care (01) ==
LOC: LAB SHORT 18:50 → LAB 18:50 → LAB FUT 06-06 18:45
DX: R30.9 Painful micturition, unspecified (principal)
CPT/HCPCS: 87086

== ENCOUNTER 2020-07-18 19:28 | Inpatient (IN) | payer MEDICARE, OTHER ==
[~2020-07-18] VITALS: Ht 157.5 cm; Wt 90.7 kg
[~2020-07-18 19:28] MED LIST changes: -MIRALAX17 GM PO
[2020-07-18 22:45] LABS: BASOPHILS ABSOLUTE AUTO 0.05 K/mm3 (0.00-0.23); BASOPHILS PERCENT AUTO 1 % (0-2); EOSINOPHILS ABSOLUTE AUTO 0.17 K/mm3 (0.00-0.68); EOSINOPHILS PERCENT AUTO 3 % (0-6); Hematocrit 39.5 % (33.0-51.0); Hemoglobin 12.7 g/dL (11.5-16.0); IMMATURE GRAN ABSOLUTE AUTO 0.02 K/mm3 (0.00-0.10); IMMATURE GRAN PERCENT AUTO 0 % (0-1); LYMPHOCYTES ABSOLUTE AUTO 1.38 K/mm3 (0.84-5.20); LYMPHOCYTES PERCENT AUTO 22 % (21-46); MONOCYTES ABSOLUTE AUTO 0.67 K/mm3 (0.16-1.47); MONOCYTES PERCENT AUTO 11 % (4-13); Mean Corpuscular HGB 29.3 pg (26.0-34.0); Mean Corpuscular HGB Conc 32.2 g/dL (31.5-36.5); Mean Corpuscular Volume 91 fL (80-100); Mean Platelet Volume 11.3 fL (9.1-12.4); NEUTROPHILS ABSOLUTE AUTO 3.86 K/mm3 (1.96-9.15); NEUTROPHILS PERCENT AUTO 63 % (41-73); Platelet Count 126 K/mm3 (150-400); RDW Coefficient Variation 13.7 % (11.7-14.2); Red Blood Cell Count 4.34 M/mm3 (3.80-5.20); White Blood Cell Count 6.15 K/mm3 (4.00-11.30)
[2020-07-18 23:04] LABS: Albumin, Blood 3.7 g/dL (3.4-5.0); Bilirubin, Total 0.9 mg/dL (0.1-1.0); Bun/Creatinine Ratio 13.3 (12.0-20.0); Calcium, Blood 9.2 mg/dL (8.5-10.1); Creatinine, Blood 1.35 mg/dL (0.40-1.00); Globulin, Blood 3.6 g/dL (2.2-4.0); Potassium, Blood 3.8 mmol/L (3.5-5.5); Total Protein, Blood 7.3 g/dL (6.4-8.2)
--- NOTE | 2020-07-19 05:43 | NUR ---
SHIFT SUMMARY NEW ADMIT THIS SHIFT. CONFUSED AT TIMES. NPO. LLE EXTERNALLY ROTATED, DENIES N/T BLE, MOVES TOES WELL, PPP. PAIN CONTROLLED WITH 1MG IV DILAUDID X1. NO NAUSEA/EMESIS. PT ORIENTED TO ROOM + CALL LIGHT USE. ORTHO CONSULT CALLED. SURGICAL PACKET ON FRONT OF CHART, COVID SWAB SENT. BED ALARM ON FOR SAFETY. PT CURRENTLY RESTING IN BED WITH CALL LIGHT IN REACH.
[2020-07-19 08:16] LABS: Influenza A, PCR Negative (NEGATIVE); Influenza B, PCR Negative (NEGATIVE); Resp Syncytial Virus, PCR Negative (NEGATIVE); SARS-Cov-2 (COVID-19) PCR, MMC Negative (NEGATIVE)
--- NOTE | 2020-07-19 08:33 | NUR ---
DISCUSSED HOLDING MEDICATIONS THIS AM, REPORTS OK TO HOLD MEDICATIONS THIS AM RELATED TO NPO FOR SURGERY.
--- NOTE | 2020-07-19 08:33 | NUR ---
DR ZHENG HERE TO SEE PT, FAMILY PRESENT.
--- NOTE | 2020-07-19 10:13 | NUR ---
EKG COMPLETED WITH FEMALE ACCOUNT SUPPORT ASSOCIATE IN ROOM. PT RESTING IN CHAIR.
[2020-07-19 10:31] LABS: International Normalized Ratio 1.01; Prothrombin Time Results 10.8 Sec (9.7-11.5)
--- NOTE | 2020-07-19 11:13 | NUR ---
OTHER RN ATTEMPTING IV.
--- NOTE | 2020-07-19 11:15 | NUR ---
DR BANDA BEEN TO SEE PT WHILE WAS IN ROOM EARLIER TODAY.
--- NOTE | 2020-07-19 12:13 | NUR ---
PT OUT OF ROOM FOR PROCEDURE IN BED WITH OTHER STAFF. PT PRESENT.
--- NOTE | 2020-07-19 16:03 | NUR ---
PT BACK FROM HAVING PROCEDURE. PT HAS ULLOA IN PLACE. PT HAS DRESSING (AQUACELL) TO L HIP THAT IS C/D/I. PT HAS PAS TO BLE. PT AWAKE AND ORIENTED. FAMILY WITH PT. PT IV IN RIGHT ARM REPORTED TO INFILTRATE IN OR WHICH IS WRAPPED WITH GAUZE AND DEE WRAP. PULSE PRESENT. PT ABLE TO WIGGLE ALL FINGERS. VSS. PT ON RA AT 93%.
--- NOTE | 2020-07-19 16:13 | NUR ---
PT EDUCATED ON I/S.
--- NOTE | 2020-07-19 17:10 | NUR ---
PT HAVING INCREASED NAUSEA AND DRY HEAVES. CUSTOMER ACQUISITION SPECIALIST Jeaneth NOTIFIED . REPORTED TO GIVE EXTRA DOSE OF ZOFRAN NOW.
--- NOTE | 2020-07-19 17:59 | NUR ---
SHIFT SUMMARY PT WAS NPO THIS AM FOR SURGERY. PT HAD PROCEDURE. PT HAD NAUSEA WITH DRY HEAVES POST-OP. PT ALSO REPORTED PAIN IN L HIP/BOTTOM AREA. PT BEEN REPOSITIONED, MEDICATED FOR PAIN AND NAUSEA. DR ZHENG WAS NOTIFIED OF INCREASED NAUSEA, PT GIVEN EXTRA DOSE OF ZOFRAN PER
--- NOTE | 2020-07-19 18:07 | NUR ---
PT'S REPORTS PT APPEARS MORE CALM. PT DOES NOT LOOK IN PAIN OR HAVING DRY HEAVES AT THIS TIME.
[2020-07-20 02:57] LABS: BASOPHILS ABSOLUTE AUTO 0.02 K/mm3 (0.00-0.23); BASOPHILS PERCENT AUTO 0 % (0-2); EOSINOPHILS PERCENT AUTO 0 % (0-6); Hematocrit 31.8 % (33.0-51.0); IMMATURE GRAN ABSOLUTE AUTO 0.04 K/mm3 (0.00-0.10); IMMATURE GRAN PERCENT AUTO 1 % (0-1); LYMPHOCYTES ABSOLUTE AUTO 0.49 K/mm3 (0.84-5.20); LYMPHOCYTES PERCENT AUTO 6 % (21-46); MONOCYTES ABSOLUTE AUTO 0.49 K/mm3 (0.16-1.47); MONOCYTES PERCENT AUTO 6 % (4-13); Mean Corpuscular HGB 29.2 pg (26.0-34.0); Mean Corpuscular HGB Conc 31.4 g/dL (31.5-36.5); Mean Corpuscular Volume 93 fL (80-100); Mean Platelet Volume 11.3 fL (9.1-12.4); NEUTROPHILS ABSOLUTE AUTO 6.64 K/mm3 (1.96-9.15); NEUTROPHILS PERCENT AUTO 86 % (41-73); Platelet Count 101 K/mm3 (150-400); RDW Coefficient Variation 13.8 % (11.7-14.2); RDW Standard Deviation 46.5 fL (35.1-46.3); Red Blood Cell Count 3.43 M/mm3 (3.80-5.20); White Blood Cell Count 7.68 K/mm3 (4.00-11.30)
[2020-07-20 03:12] LABS: Bun/Creatinine Ratio 17.6 (12.0-20.0); Calcium, Blood 8.5 mg/dL (8.5-10.1); Creatinine, Blood 1.48 mg/dL (0.40-1.00); Potassium, Blood 4.2 mmol/L (3.5-5.5)
--- NOTE | 2020-07-20 05:16 | NUR ---
SHIFT SUMMARY POD1 L RUCHI HIP. VSS. PT DIDN'T MUCH T/O SHIFT. PT STARTED C/O PAIN AT 2AM WITH MOV'T/REPOSITIONING. MEDICATED WITH DILAUDID 0.5MG. IV ON L ARM WAS INFILTRATED. DC'D CATH INTACT. PLACED NEW 20G IV ON R FOREARM. AFTER A DOSE OF DILAUDID PT STARTED GETTING RESTLESS AND CONFUSED. PT PULLED ULLOA CATHETER WITH BALOON STILL INFLATED. NO VAG BLEED NOTED. PT DENIES PAIN. PT TRIED PULLING HER IV WELL. IV ON R FOREARM WRAPPED WITH DEE WRAP. NURSING TEACHER ON BEDSIDE TO MONITOR PT. CALLED DR. HUSSEIN FOR AN UPDATE AND REQUEST FOR NEW PAIN MED. NEW ORDER FOR OXY PO AND FENTANYL INSTEAD OF DILAUDID. DILAUDID WAS DC'D. PT REMAIN IN BED. COMFORTABLE. ENC TO SLEEP. CALL LIGHT WITHIN REACH. BED ALARM IN PLACED.
[2020-07-20 11:45] LABS: Hematocrit 32.3 % (33.0-51.0)
--- NOTE | 2020-07-21 06:20 | NUR ---
SHIFT SUMMARY PT HAS BEEN ALERT, PLEASANT, AND CONFUSED/FORGETFUL OVERNIGHT. BED ALARM ON. HAS BEEN UP TO BATHROOM OR BSC MULTIPLE TIMES TO VOID. USING 1X ASSIST, FWW AND GAIT BELT WHEN UP. PAIN MANAGED WITH PO OXY PER ORDERS. PT HAS SET OFF BED ALARM MULTIPLE TIMES THIS SHIFT, REPORTING SHE FORGETS TO CALL STAFF FOR ASSISTANCE. PT RESTING IN BED AT THIS TIME. BED ALARM ON.
[2020-07-21 08:20] LABS: Hematocrit 29.4 % (33.0-51.0); Hemoglobin 9.2 g/dL (11.5-16.0)
--- NOTE | 2020-07-22 03:03 | NUR ---
SHIFT SUMMARY: POD 3 LEFT HIP REPAIR PATIENT IS ALERT AND ORIENTED X2-3 AT TIMES WHILE AWAKE. BED ALARM IS ON. SHE HAS BEEN SLEEPING MOST OF THE SHIFT BUT IS EASILY AROUSABLE. WHILE GETTING UP TO USE THE BATHROOM SHE IS A SBA WITH FWW AND GAIT BELT. PATIENT REPORTS NO PAIN AT THIS TIME THOUGH RECIEVED SCEDULED PO TYLENOL. PATIENT IS RESTING IN BED AT THIS TIME. CALL LIGHT WITHIN REACH. AQUACEL ON HIP WAS CHANGED THIS SHIFT AND IS D/C/I. THE PLAN IS TO POSSIBLY DISCHARGE TO HOME WITH OUTPATIENT THERAPY.
[2020-07-22 08:44] LABS: Hematocrit 28.6 % (33.0-51.0)
--- NOTE | 2020-07-22 12:02 | NUR ---
DR. ZHENG NOTIFIED OF PT'S LOW URINE OUTPUT. ALSO NOTIFIED OF DECREASED GFR AND INCREASED CREATININE 07/20/20. AT THIS TIME WILL CONITNUE TO ENCOURAGE FLUIDS AND MONITOR OUTPUT.
[2020-07-22 14:36] LABS: Base Excess Venous 2.8 mmol/L; Bicarbonate Venous 26.7 mmol/L (24.0-30.0); PCO2 Venous 41.9 mmHg (38-42); pH Blood Venous 7.42 (7.34-7.37)
[2020-07-22 14:39] LABS: Hematocrit 28.8 % (33.0-51.0)
--- NOTE | 2020-07-22 15:13 | NUR ---
CHANGE IN LOC AND LOW BP PT REPORTED INCREASED L HIP PAIN AT APPROXIMATELY 1320 WHILE GETTING UP TO THE BATHROOM. SHE WAS MOANING AND TEARFUL R/T PAIN. SHE ALSO REPORTED NAUSEA. PT WAS ASSISTED BACK TO THE BED FROM THE BATHROOM. SHE WAS GIVEN A SUPPOSITORY AND NORCO AT 1330. PT WAS ASKED TO ROLL ONTO HER SIDE FOR THE SUPPOSITORY, WHEN PT ROLLED BACK TO HER BACK SHE WAS PALE AND RR BETWEEN 10 AND 12. VS CHECKED AND OTHER THAN RR VSS. PT REPORTED SHE FELT DIZZY AND BECAME SOMNOLENT BUT WOKE TO ANSWER QUESTIONS. BP RECHECKED AND WAS FOUND TO BE 93/[address] ZHENG NOTIFIED OF CHANGE IN LOC AND DECREASED BP. H&H AND VBG ORDERED STAT. NORMAL SALINE 500ML BOLUS ORDERED AND STARTED AT APPROXIMATELY 1410. PT WAS OBSERVED DURING BOLUS. NARCAN PULLED AND READY AT BEDSIDE IF NEEDED. NARCAN NOT NEEDED LOC AND RR IMPROVED AFTER BOLUS, PER DR. ZHENG NS BOLUS COMPLETED AND CHANGE IN STATUS NOTED SO NARCAN WAS NOT NEEDED. AFTER NS BOLUS PT'S LOC AND RR IMPROVED. PT IS NOW SITTING UP WATCHING TV AND TALKING WITH HER WHO IS AT THE BEDSIDE. WILL NOTIFY DR. ZHENG OF LAB RESULTS WHEN CALL IS RETURNED, CALL PLACED TO DR. ZHENG AT [phone].
--- NOTE | 2020-07-22 15:48 | NUR ---
DR. ZHENG NOTIFIED OF IMPROVED PT STATUS. HE ALSO REVIEWED VBG RESULTS WITH THIS RN.
--- NOTE | 2020-07-22 18:38 | NUR ---
SHIFT SUMMARY PT IS POD#1 FROM L GLUTEAL REPAIR WITH DR. SCHWAB. PAIN HAS BEEN MANAGED WITH PO NORCO THIS SHIFT. PT IS A 1 PERSON ASSIST WITH GAIT BELT AND WALKER. PT HAS REPORTED SOME NAUSEA AND VOMITED X1 TODAY. PLAN FOR POSSIBLE DISCHARGE TO SNF TOMORROW. VSS. WILL MONITOR UNTIL REPORT TO ONCOMING RN.
--- NOTE | 2020-07-23 03:20 | NUR ---
SHIFT SUMMARY: POD 5 LEFT HIP REPAIR PATIENT IS ALERT AND ORIENTED X2-3 WHILE AWAKE SINCE SHE CAN BE CONFUSED AT TIMES. SHE HAS BEEN SLEEPING MAJORITY OF THE SHIFT BUT IS EASILY AROUSABLE. SHE HAS RECIEVED TYLENOL FOR PAIN. AN ICE PACK BEEN PLACED ON HER LEFT HIP WHICH ALSO SEEMED TO HELP RELIEVE PAIN. SHE HAS BEEN VOIDING IN THE BATHROOM AND HAD A BM EARLY ON IN THE SHIFT. ENCOURAGING PO FLUIDS AND INCENTIVE SPIROMETER USE. CALL LIGHT WITHIN REACH FOR PATIENT. JALEESA IS C/D/I. SHE IS A SBA WITH FWW AND GAIT BELT. THE PLAN IS TO POSSIBLY BE DISCHARGED HOME WITH OUTPATIENT THERAPY.
[2020-07-23] MEDS ORDERED: MIRALAX17 GM PO (13:26)
[2020-07-23] MEDS ORDERED: TRAM50 PO (13:26)
--- NOTE | 2020-07-23 14:58 | NUR ---
discharge pt discharge with via wheelchair. pt able to stand and transfer with minimal pain. educated pt and on importance of following hip precautions and following up with outpatient therapy. printed information sent with patient and . scripts sent with patient. all belongings sent with patient. iv removed.
== END 2020-07-23 14:45 | disposition home or self-care (01) | DRG 522 ==
LOC: ER 19:28 → SURS 07-19 01:07
PROVIDERS: Hospitalist; Orthopaedic Surgery; Physician Assistant; ADMIT Internal Medicine
PROC: 3E0234Z Introduction of Serum, Toxoid and Vaccine into Muscle, Percutaneous Approach (ICD-10-PCS; 2020-07-19)
PROC: 0SRS0JA Replacement of Left Hip Joint, Femoral Surface with Synthetic Substitute, Uncemented, Open Approach (ICD-10-PCS; principal; 2020-07-19 13:30)
DX: S72.002A Fracture of unspecified part of neck of left femur, initial encounter for closed fracture (principal); I13.0 Hypertensive heart and chronic kidney disease with heart failure and stage 1 through stage 4 chronic kidney disease, or unspecified chronic kidney disease; I50.22 Chronic systolic (congestive) heart failure; Z20.822 Contact with and (suspected) exposure to COVID-19; Z23 Encounter for immunization; W19.XXXA Unspecified fall, initial encounter; E03.9 Hypothyroidism, unspecified; N18.30 Chronic kidney disease, stage 3 unspecified; I25.10 Atherosclerotic heart disease of native coronary artery without angina pectoris; D63.1 Anemia in chronic kidney disease; F03.90 Unspecified dementia, unspecified severity, without behavioral disturbance, psychotic disturbance, mood disturbance, and anxiety; K21.9 Gastro-esophageal reflux disease without esophagitis; Z79.82 Long term (current) use of aspirin; Z79.02 Long term (current) use of antithrombotics/antiplatelets
CPT/HCPCS: 0241U; 36415; 71045; 72170; 73502; 80048; 80053; 82803; 84443; 85014; 85018; 85025; 85610; 85730; 88305; 88311; 93005; 93010; 96374; 96375; 97110; 97116; 97161; 97165; 97530; 97535; 99284-25; A9270; C1776; G0008; J1100; J1170; J1650; J1885; J2310; J2370; J2405; J2704; J3010; J7030; J7040; Q2038

== ENCOUNTER 2020-12-08 12:16 | Emergency (ER) | payer MEDICARE, OTHER ==
[~2020-12-08] VITALS: Ht 157.5 cm; Wt 77.1 kg
[~2020-12-08 12:16] MED LIST changes: +MIRALAX17 GM PO
[2020-12-08 13:05] LABS: BASOPHILS ABSOLUTE AUTO 0.05 K/mm3 (0.00-0.23); BASOPHILS PERCENT AUTO 1 % (0-2); EOSINOPHILS ABSOLUTE AUTO 0.21 K/mm3 (0.00-0.68); EOSINOPHILS PERCENT AUTO 4 % (0-6); Hemoglobin 12.4 g/dL (11.5-16.0); IMMATURE GRAN ABSOLUTE AUTO 0.01 K/mm3 (0.00-0.10); IMMATURE GRAN PERCENT AUTO 0 % (0-1); LYMPHOCYTES ABSOLUTE AUTO 1.96 K/mm3 (0.84-5.20); LYMPHOCYTES PERCENT AUTO 33 % (21-46); MONOCYTES ABSOLUTE AUTO 0.77 K/mm3 (0.16-1.47); MONOCYTES PERCENT AUTO 13 % (4-13); Mean Corpuscular HGB 28.2 pg (26.0-34.0); Mean Corpuscular HGB Conc 31.8 g/dL (31.5-36.5); Mean Corpuscular Volume 89 fL (80-100); NEUTROPHILS ABSOLUTE AUTO 2.95 K/mm3 (1.96-9.15); NEUTROPHILS PERCENT AUTO 50 % (41-73); Platelet Count 174 K/mm3 (150-400); RDW Coefficient Variation 16.4 % (11.7-14.2); Red Blood Cell Count 4.39 M/mm3 (3.80-5.20); White Blood Cell Count 5.95 K/mm3 (4.00-11.30)
[2020-12-08 13:29] LABS: Alanine Aminotransfer (ALT/SGP 19 U/L (12-78); Albumin, Blood 3.4 g/dL (3.4-5.0); Albumin/Globulin Ratio 0.8 (0.8-1.8); Alk Phos 71 U/L (50-136); Anion Gap 4 mmol/L (6-16); Aspartate Aminotrans (AST/SGOT 28 U/L (12-37); Bilirubin, Total 0.6 mg/dL (0.1-1.0); Blood Urea Nitrogen 18 mg/dL (8-24); Bun/Creatinine Ratio 13.8 (12.0-20.0); CO2, Blood 29 mmol/L (21-32); Calcium, Blood 9.1 mg/dL (8.5-10.1); Chloride, Blood 105 mmol/L (98-108); Glomerular Filtration Rate 42 (60-); Glucose, Blood 105 mg/dL (70-99); Potassium, Blood 4.3 mmol/L (3.5-5.5); Sodium, Blood 138 mmol/L (136-145); Total Protein, Blood 7.4 g/dL (6.4-8.2); Troponin I <0.015 ng/mL (0.000-0.040)
== END 2020-12-08 15:16 | disposition home or self-care (01) ==
LOC: ER 12:16
PROVIDERS: Physician Assistant
DX: R07.9 Chest pain, unspecified (principal); Z88.0 Allergy status to penicillin; Z88.1 Allergy status to other antibiotic agents; Z88.5 Allergy status to narcotic agent; Z88.8 Allergy status to other drugs, medicaments and biological substances; Z79.82 Long term (current) use of aspirin; Z79.899 Other long term (current) drug therapy; Z87.891 Personal history of nicotine dependence
CPT/HCPCS: 36415; 71045; 80053; 84484; 85025; 93005; 93010; 99285-25

== ENCOUNTER 2021-07-01 21:52 | Emergency (ER) | payer MEDICARE, OTHER ==
[~2021-07-01] VITALS: Ht 157.5 cm; Wt 81.7 kg
== END 2021-07-02 00:55 | disposition home or self-care (01) ==
LOC: ER 21:52
DX: S00.03XA Contusion of scalp, initial encounter (principal); M54.6 Pain in thoracic spine; W01.10XA Fall on same level from slipping, tripping and stumbling with subsequent striking against unspecified object, initial encounter; Z88.0 Allergy status to penicillin; Z88.1 Allergy status to other antibiotic agents; Z88.5 Allergy status to narcotic agent; Z88.8 Allergy status to other drugs, medicaments and biological substances; Z79.899 Other long term (current) drug therapy; Z79.82 Long term (current) use of aspirin; G43.909 Migraine, unspecified, not intractable, without status migrainosus; M19.90 Unspecified osteoarthritis, unspecified site; K21.9 Gastro-esophageal reflux disease without esophagitis; E03.9 Hypothyroidism, unspecified; N18.30 Chronic kidney disease, stage 3 unspecified
CPT/HCPCS: 70450; 99283-25

== ENCOUNTER → 2021-12-25 | Outpatient (CLI) | payer MEDICARE, OTHER ==
[2021-12-25 17:00] LABS: BASOPHILS ABSOLUTE AUTO 0.07 K/mm3 (0.00-0.23); BASOPHILS PERCENT AUTO 2 % (0-2); EOSINOPHILS ABSOLUTE AUTO 0.25 K/mm3 (0.00-0.68); EOSINOPHILS PERCENT AUTO 6 % (0-6); Hematocrit 36.1 % (33.0-51.0); Hemoglobin 11.9 g/dL (11.5-16.0); IMMATURE GRAN ABSOLUTE AUTO 0.01 K/mm3 (0.00-0.10); IMMATURE GRAN PERCENT AUTO 0 % (0-1); LYMPHOCYTES ABSOLUTE AUTO 1.21 K/mm3 (0.84-5.20); LYMPHOCYTES PERCENT AUTO 29 % (21-46); MONOCYTES ABSOLUTE AUTO 0.55 K/mm3 (0.16-1.47); MONOCYTES PERCENT AUTO 13 % (4-13); Mean Corpuscular HGB 30.7 pg (26.0-34.0); Mean Corpuscular Volume 93 fL (80-100); Mean Platelet Volume 12.2 fL (9.1-12.4); NEUTROPHILS ABSOLUTE AUTO 2.06 K/mm3 (1.96-9.15); NEUTROPHILS PERCENT AUTO 50 % (41-73); Platelet Count 135 K/mm3 (150-400); RDW Coefficient Variation 13.2 % (11.7-14.2); RDW Standard Deviation 44.8 fL (35.1-46.3); Red Blood Cell Count 3.87 M/mm3 (3.80-5.20); White Blood Cell Count 4.15 K/mm3 (4.00-11.30)
[2021-12-25 17:02] LABS: Bun/Creatinine Ratio 10.3 (12.0-20.0); Calcium, Blood 9.4 mg/dL (8.5-10.1); Creatinine, Blood 1.84 mg/dL (0.40-1.00); Potassium, Blood 4.4 mmol/L (3.5-5.5)
== END | disposition home or self-care (01) ==
LOC: LAB 16:49 → LAB SHORT 16:49
PROVIDERS: Physician Assistant Surgical
DX: R07.89 Other chest pain (principal)
CPT/HCPCS: 80048; 84484; 85025; 85379

== ENCOUNTER → 2022-01-14 | Outpatient (CLI) | payer MEDICARE, OTHER | END | disposition home or self-care (01) | LOC: LAB SHORT 15:20 → LAB 15:20 | DX: N39.0 Urinary tract infection, site not specified (principal) | CPT/HCPCS: 87077; 87086; 87186 ==

== ENCOUNTER 2022-05-26 17:39 | Emergency (ER) | payer MEDICARE, OTHER ==
[~2022-05-26] VITALS: Ht 157.5 cm; Wt 79.4 kg
[2022-05-26 19:17] LABS: Source, Urine Straight Cath
[2022-05-26 19:29] LABS: Appearance, Urine Clear (Clear); Bilirubin, Urine Neg (Neg); Blood, Urine 1+ (Neg); Color, Urine Yellow (P-Yellow); Glucose Qualitative, Urine Neg (Neg); Ketones, Urine Neg (Neg); Leukocyte Esterase, Urine 2+ (Neg); Nitrite, Urine Neg (Neg); Protein, Urine 1+ (Neg); Urobilinogen, Urine NORM (Normal)
[2022-05-26 19:43] LABS: Bacteria Few /hpf; Squamous Epithelial Cells Few /hpf (Few)
== END 2022-05-26 21:12 | disposition home or self-care (01) ==
LOC: ER 17:39
PROVIDERS: Student in an Organized Health Care Education/Training Program
DX: R07.9 Chest pain, unspecified (principal); R10.9 Unspecified abdominal pain; N18.30 Chronic kidney disease, stage 3 unspecified; I25.10 Atherosclerotic heart disease of native coronary artery without angina pectoris; E03.9 Hypothyroidism, unspecified; Z88.0 Allergy status to penicillin; Z88.1 Allergy status to other antibiotic agents; Z88.5 Allergy status to narcotic agent; Z88.8 Allergy status to other drugs, medicaments and biological substances; Z79.899 Other long term (current) drug therapy; Z79.82 Long term (current) use of aspirin
CPT/HCPCS: 71275; 74175; 81001; 83690; 84484; 93005; 93010; Q9967

== ENCOUNTER → 2022-05-26 | Outpatient (CLI) | payer MEDICARE, OTHER | END | disposition home or self-care (01) | DX: R07.9 Chest pain, unspecified (principal) ==

== ENCOUNTER 2022-08-31 00:49 | Emergency (ER) | payer MEDICARE, OTHER ==
[~2022-08-31] VITALS: Ht 165.1 cm; Wt 81.7 kg
[2022-08-31 02:03] LABS: BASOPHILS ABSOLUTE AUTO 0.05 K/mm3 (0.00-0.23); BASOPHILS PERCENT AUTO 1 % (0-2); EOSINOPHILS ABSOLUTE AUTO 0.07 K/mm3 (0.00-0.68); EOSINOPHILS PERCENT AUTO 2 % (0-6); Hematocrit 39.8 % (33.0-51.0); Hemoglobin 13.1 g/dL (11.5-16.0); IMMATURE GRAN PERCENT AUTO 0 % (0-1); LYMPHOCYTES ABSOLUTE AUTO 0.58 K/mm3 (0.84-5.20); LYMPHOCYTES PERCENT AUTO 17 % (21-46); MONOCYTES ABSOLUTE AUTO 0.79 K/mm3 (0.16-1.47); MONOCYTES PERCENT AUTO 23 % (4-13); Mean Corpuscular HGB 29.5 pg (26.0-34.0); Mean Corpuscular HGB Conc 32.9 g/dL (31.5-36.5); Mean Corpuscular Volume 90 fL (80-100); Mean Platelet Volume 11.5 fL (9.1-12.4); NEUTROPHILS ABSOLUTE AUTO 1.99 K/mm3 (1.96-9.15); NEUTROPHILS PERCENT AUTO 57 % (41-73); Platelet Count 126 K/mm3 (150-400); RDW Coefficient Variation 13.2 % (11.7-14.2); RDW Standard Deviation 43.1 fL (35.1-46.3); Red Blood Cell Count 4.44 M/mm3 (3.80-5.20); White Blood Cell Count 3.48 K/mm3 (4.00-11.30)
[2022-08-31 02:11] LABS: Albumin, Blood 3.7 g/dL (3.4-5.0); Bilirubin, Total 0.9 mg/dL (0.1-1.0); Bun/Creatinine Ratio 7.7 (12.0-20.0); Creatinine, Blood 1.42 mg/dL (0.40-1.00); Globulin, Blood 3.6 g/dL (2.2-4.0); Potassium, Blood 3.7 mmol/L (3.5-5.5); Total Protein, Blood 7.3 g/dL (6.4-8.2)
[2022-08-31 02:23] LABS: Influenza A, PCR NEGATIVE (NEGATIVE); Influenza B, PCR NEGATIVE (NEGATIVE); Resp Syncytial Virus, PCR NEGATIVE (NEGATIVE)
[2022-08-31 03:36] LABS: SARS-Cov-2 (COVID-19) PCR, MMC POSITIVE (NEGATIVE)
[2022-08-31] MEDS ORDERED: ONDA4ODT MM (04:17)
== END 2022-08-31 04:32 | disposition home or self-care (01) ==
LOC: ER 00:49
PROVIDERS: Student in an Organized Health Care Education/Training Program
DX: U07.1 COVID-19 (principal); F03.90 Unspecified dementia, unspecified severity, without behavioral disturbance, psychotic disturbance, mood disturbance, and anxiety; I25.10 Atherosclerotic heart disease of native coronary artery without angina pectoris; N18.30 Chronic kidney disease, stage 3 unspecified; E03.9 Hypothyroidism, unspecified; F32.A Depression, unspecified; Z88.0 Allergy status to penicillin; Z88.1 Allergy status to other antibiotic agents; Z88.5 Allergy status to narcotic agent; Z88.8 Allergy status to other drugs, medicaments and biological substances; Z79.899 Other long term (current) drug therapy; Z79.82 Long term (current) use of aspirin
CPT/HCPCS: 0241U; 36415; 71045; 80053; 84484; 85025; 93005; 93010; 99284-25; A9270

== ENCOUNTER 2022-11-07 03:50 | Emergency (ER) | payer MEDICARE, OTHER ==
[~2022-11-07] VITALS: Ht 157.5 cm; Wt 59.0 kg
[2022-11-07 05:37] LABS: Source, Urine Straight Cath
[2022-11-07 05:46] LABS: BASOPHILS ABSOLUTE AUTO 0.06 K/mm3 (0.00-0.23); BASOPHILS PERCENT AUTO 1 % (0-2); EOSINOPHILS ABSOLUTE AUTO 0.16 K/mm3 (0.00-0.68); EOSINOPHILS PERCENT AUTO 3 % (0-6); Hematocrit 33.7 % (33.0-51.0); Hemoglobin 11.2 g/dL (11.5-16.0); IMMATURE GRAN ABSOLUTE AUTO 0.01 K/mm3 (0.00-0.10); IMMATURE GRAN PERCENT AUTO 0 % (0-1); LYMPHOCYTES ABSOLUTE AUTO 1.91 K/mm3 (0.84-5.20); LYMPHOCYTES PERCENT AUTO 35 % (21-46); MONOCYTES ABSOLUTE AUTO 0.89 K/mm3 (0.16-1.47); MONOCYTES PERCENT AUTO 16 % (4-13); Mean Corpuscular HGB 29.6 pg (26.0-34.0); Mean Corpuscular HGB Conc 33.2 g/dL (31.5-36.5); Mean Corpuscular Volume 89 fL (80-100); Mean Platelet Volume 11.4 fL (9.1-12.4); NEUTROPHILS ABSOLUTE AUTO 2.44 K/mm3 (1.96-9.15); NEUTROPHILS PERCENT AUTO 45 % (41-73); Platelet Count 133 K/mm3 (150-400); RDW Coefficient Variation 13.2 % (11.7-14.2); RDW Standard Deviation 43.1 fL (35.1-46.3); Red Blood Cell Count 3.78 M/mm3 (3.80-5.20); White Blood Cell Count 5.47 K/mm3 (4.00-11.30)
[2022-11-07 05:55] LABS: Appearance, Urine Clear (Clear); Bilirubin, Urine Neg (Neg); Blood, Urine Neg (Neg); Color, Urine Yellow (P-Yellow); Glucose Qualitative, Urine Neg (Neg); Ketones, Urine 2+ (Neg); Leukocyte Esterase, Urine Neg (Neg); Nitrite, Urine Neg (Neg); Protein, Urine 2+ (Neg); Specific Gravity, Urine 1.025 (1.003-1.022); Urobilinogen, Urine 2+ (Normal)
[2022-11-07 06:07] LABS: Albumin/Globulin Ratio 0.9 (0.8-1.8); Bun/Creatinine Ratio 10.4 (12.0-20.0); Calcium, Blood 9.3 mg/dL (8.5-10.1); Creatinine, Blood 1.25 mg/dL (0.40-1.00); Globulin, Blood 3.4 g/dL (2.2-4.0); Magnesium, Blood 1.5 mg/dL (1.6-2.4); Potassium, Blood 3.4 mmol/L (3.5-5.5); Total Protein, Blood 6.4 g/dL (6.4-8.2)
[2022-11-07 06:11] LABS: Amorphous Mod (0-Heavy); Bacteria Rare /hpf; Red Blood Cells, Urine Not Seen /hpf (0-2); Squamous Epithelial Cells Few /hpf (Few); White Blood Cells, Urine 0-2 /hpf (0-5)
[2022-11-07 11:15] VITALS: BP 109/68
== END 2022-11-07 11:13 | disposition home or self-care (01) ==
LOC: ER 03:50
PROVIDERS: Student in an Organized Health Care Education/Training Program
DX: F41.9 Anxiety disorder, unspecified (principal); F03.90 Unspecified dementia, unspecified severity, without behavioral disturbance, psychotic disturbance, mood disturbance, and anxiety; F91.9 Conduct disorder, unspecified; N18.30 Chronic kidney disease, stage 3 unspecified; K21.9 Gastro-esophageal reflux disease without esophagitis; E03.9 Hypothyroidism, unspecified; Z88.0 Allergy status to penicillin; Z88.1 Allergy status to other antibiotic agents; Z88.5 Allergy status to narcotic agent; Z88.2 Allergy status to sulfonamides; Z79.82 Long term (current) use of aspirin; Z79.899 Other long term (current) drug therapy
CPT/HCPCS: 51701; 80053; 81001; 82947; 83690; 83735; 85025; A9270; J7030

== ENCOUNTER 2023-01-22 23:16 | Emergency (ER) | payer MEDICARE, OTHER ==
[~2023-01-22] VITALS: Ht 157.5 cm; Wt 83.9 kg
[2023-01-22 23:48] LABS: BASOPHILS ABSOLUTE AUTO 0.03 K/mm3 (0.00-0.23); BASOPHILS PERCENT AUTO 1 % (0-2); EOSINOPHILS ABSOLUTE AUTO 0.11 K/mm3 (0.00-0.68); EOSINOPHILS PERCENT AUTO 2 % (0-6); Hematocrit 36.8 % (33.0-51.0); Hemoglobin 12.2 g/dL (11.5-16.0); IMMATURE GRAN ABSOLUTE AUTO 0.01 K/mm3 (0.00-0.10); IMMATURE GRAN PERCENT AUTO 0 % (0-1); LYMPHOCYTES ABSOLUTE AUTO 1.06 K/mm3 (0.84-5.20); LYMPHOCYTES PERCENT AUTO 21 % (21-46); MONOCYTES PERCENT AUTO 14 % (4-13); Mean Corpuscular HGB 29.4 pg (26.0-34.0); Mean Corpuscular HGB Conc 33.2 g/dL (31.5-36.5); Mean Corpuscular Volume 89 fL (80-100); Mean Platelet Volume 11.5 fL (9.1-12.4); NEUTROPHILS ABSOLUTE AUTO 3.23 K/mm3 (1.96-9.15); NEUTROPHILS PERCENT AUTO 63 % (41-73); Platelet Count 123 K/mm3 (150-400); RDW Coefficient Variation 12.9 % (11.7-14.2); RDW Standard Deviation 41.8 fL (35.1-46.3); Red Blood Cell Count 4.15 M/mm3 (3.80-5.20); White Blood Cell Count 5.14 K/mm3 (4.00-11.30)
[2023-01-23 00:10] LABS: Albumin, Blood 3.7 g/dL (3.4-5.0); Bun/Creatinine Ratio 9.8 (12.0-20.0); Calcium, Blood 10.1 mg/dL (8.5-10.1); Creatinine, Blood 1.23 mg/dL (0.40-1.00); Globulin, Blood 3.6 g/dL (2.2-4.0); Potassium, Blood 3.3 mmol/L (3.5-5.5); Total Protein, Blood 7.3 g/dL (6.4-8.2)
[2023-01-23 02:30] VITALS: BP 124/63
== END 2023-01-23 03:05 | disposition home or self-care (01) ==
LOC: ER 23:16
PROVIDERS: Student in an Organized Health Care Education/Training Program
DX: R10.13 Epigastric pain (principal); F03.90 Unspecified dementia, unspecified severity, without behavioral disturbance, psychotic disturbance, mood disturbance, and anxiety; Z88.5 Allergy status to narcotic agent; Z88.1 Allergy status to other antibiotic agents; Z88.0 Allergy status to penicillin; Z88.8 Allergy status to other drugs, medicaments and biological substances; Z87.891 Personal history of nicotine dependence
CPT/HCPCS: 71046; 74177; 80053; 83690; 84484; 85025; 93005; 93010; 96361; 96374-59; 96375; 99285-25; J2405; J3010; J7030; Q9967

== ENCOUNTER 2023-02-06 14:56 | Inpatient (IN) | payer MEDICARE, OTHER ==
[~2023-02-06] VITALS: Ht 167.6 cm; Wt 65.5 kg
[2023-02-06 15:34] LABS: BASOPHILS ABSOLUTE AUTO 0.06 K/mm3 (0.00-0.23); BASOPHILS PERCENT AUTO 1 % (0-2); EOSINOPHILS ABSOLUTE AUTO 0.17 K/mm3 (0.00-0.68); EOSINOPHILS PERCENT AUTO 3 % (0-6); Hematocrit 36.2 % (33.0-51.0); IMMATURE GRAN ABSOLUTE AUTO 0.02 K/mm3 (0.00-0.10); IMMATURE GRAN PERCENT AUTO 0 % (0-1); LYMPHOCYTES ABSOLUTE AUTO 0.86 K/mm3 (0.84-5.20); LYMPHOCYTES PERCENT AUTO 13 % (21-46); MONOCYTES ABSOLUTE AUTO 0.73 K/mm3 (0.16-1.47); MONOCYTES PERCENT AUTO 11 % (4-13); Mean Corpuscular HGB 29.3 pg (26.0-34.0); Mean Corpuscular HGB Conc 33.1 g/dL (31.5-36.5); Mean Corpuscular Volume 88 fL (80-100); Mean Platelet Volume 12.2 fL (9.1-12.4); NEUTROPHILS ABSOLUTE AUTO 4.96 K/mm3 (1.96-9.15); NEUTROPHILS PERCENT AUTO 73 % (41-73); Platelet Count 109 K/mm3 (150-400); RDW Coefficient Variation 12.9 % (11.7-14.2); RDW Standard Deviation 41.7 fL (35.1-46.3)
[2023-02-06 16:00] LABS: Alanine Aminotransfer (ALT/SGP 17 U/L (12-78); Albumin, Blood 3.2 g/dL (3.4-5.0); Albumin/Globulin Ratio 0.9 (0.8-1.8); Alk Phos 63 U/L (50-136); Anion Gap 7 mmol/L (6-16); Aspartate Aminotrans (AST/SGOT 26 U/L (12-37); Bilirubin, Total 1.2 mg/dL (0.1-1.0); Blood Urea Nitrogen 19 mg/dL (8-24); Bun/Creatinine Ratio 14.6 (12.0-20.0); CO2, Blood 26 mmol/L (21-32); Calcium, Blood 9.3 mg/dL (8.5-10.1); Chloride, Blood 108 mmol/L (98-108); Ethanol (Alcohol), Blood, Med <3 mg/dL; Globulin, Blood 3.5 g/dL (2.2-4.0); Glomerular Filtration Rate 42 (60-); Glucose, Blood 122 mg/dL (70-99); Potassium, Blood 3.6 mmol/L (3.5-5.5); Sodium, Blood 141 mmol/L (136-145); Total Protein, Blood 6.7 g/dL (6.4-8.2)
[2023-02-06 17:29] LABS: Source, Urine Clean Catch
[2023-02-06 17:58] LABS: Bilirubin, Urine Neg (Neg); Blood, Urine Neg (Neg); Glucose Qualitative, Urine Neg (Neg); Ketones, Urine Neg (Neg); Leukocyte Esterase, Urine 3+ (Neg); Nitrite, Urine Pos (Neg); Protein, Urine 1+ (Neg); Specific Gravity, Urine 1.015 (1.003-1.022); Urobilinogen, Urine 2+ (Normal)
[2023-02-06 18:06] LABS: Appearance, Urine Hazy (Clear); Color, Urine Yellow (P-Yellow)
[2023-02-06 18:07] LABS: Bacteria Many /hpf; Red Blood Cells, Urine 0-2 /hpf (0-2); Squamous Epithelial Cells Rare /hpf (Few)
[2023-02-06 18:48] LABS: U Amphetamine Screen Not Detected; U Barbituate Screen Not Detected; U Benzodiazapine Screen Not Detected; U Methamphetamine Screen Not Detected
[2023-02-06 18:49] LABS: U Buprenorphine Screen Not Detected; U Cannabinoids Screen Not Detected; U Cocaine Screen Not Detected; U Methadone Screen Not Detected; U Opiates Screen DETECTED; U Oxycodone Screen Not Detected; U Phencyclidine Screen Not Detected; U Propoxyphene Screen Not Detected
[2023-02-06] MEDS ORDERED: EUTHYROX100 MC1 PO (20:08)
[2023-02-06] MEDS ORDERED: COLACE100 MG PO (20:09)
[2023-02-06] MEDS ORDERED: RANOLAZINE ER500 M2 PO (20:10)
[2023-02-06] MEDS ORDERED: ATOR40TA PO (20:11)
[2023-02-06] MEDS ORDERED: ISOSORBIDE MONO30 MG PO (20:11)
[2023-02-06] MEDS ORDERED: SPIRONOLACTONE25 MG PO (20:11)
[2023-02-06 21:59] VITALS: BP 125/65
--- NOTE | 2023-02-06 23:39 | NUR ---
PT ARRIVAL AT 2114, TRANSFERRED VIA SLIDER SHEET. PT HAS DEMENTIA, BUT WAS COOPERATIVE WITH CARE. PT CHANGED INTO HOSPITAL GOWN. SURGICAL PREVENTION KIT COMPLETE. ARRIVED WITH PT AND ABLE TO PROVIDE SOME BACKGROUND ON PATIENT. VOIDED 300ML YELLOW/CLOUDY. PUREWICK/ATTENDS IN PLACE, BED ALARM ON. CALL LIGHT WITHIN REACH.
[2023-02-07] VITALS (14 sets, daily range): BP systolic 96–142; BP diastolic 64–97
--- NOTE | 2023-02-07 05:13 | NUR ---
SHIFT SUMMARY PT A&OX2, AND PLEASANTLY CONFUSED. NO ACUTE CHANGES, VSS. BED ALARM ON PT HAS BEEN ATTEMPTING TO GET OUT OF BED. EASILY REORIENTABLE. PUREWICK/ATTENDS. NPO SINCE MIDNIGHT, FLUIDS RUNNING. CONSULT CALLED INTO ANSWERING SERVICE. BED IN LOWEST POSITION, CALL LIGHT WITHIN REACH.
[2023-02-07 05:35] LABS: Hematocrit 35.6 % (33.0-51.0); Hemoglobin 11.6 g/dL (11.5-16.0); Mean Corpuscular HGB 29.2 pg (26.0-34.0); Mean Corpuscular HGB Conc 32.6 g/dL (31.5-36.5); Mean Corpuscular Volume 90 fL (80-100); Mean Platelet Volume 11.9 fL (9.1-12.4); Platelet Count 93 K/mm3 (150-400); RDW Coefficient Variation 12.7 % (11.7-14.2); Red Blood Cell Count 3.97 M/mm3 (3.80-5.20); White Blood Cell Count 5.93 K/mm3 (4.00-11.30)
[2023-02-07 05:52] LABS: Bun/Creatinine Ratio 14.9 (12.0-20.0); Calcium, Blood 8.9 mg/dL (8.5-10.1); Creatinine, Blood 1.21 mg/dL (0.40-1.00); Potassium, Blood 3.1 mmol/L (3.5-5.5)
--- NOTE | 2023-02-07 09:27 | NUR ---
UPDATE PT NOW HAS SITTER AT BEDSIDE D/T CONFUSION. PLAN FOR SURGERY TODAY. PT STRICT NPO AT THIS TIME. ONLY TO GIVE PO METOPROLOL. ORDERS TO CHANGE POTASSIUM TO IV. PT'S IV INFILTRATED, ATTEMPTED NEW LINE. NOT SUCCESSFUL. HAND RUG CLEANER TO ASSIST.
--- NOTE | 2023-02-07 14:31 | NUR ---
UPDATE SECOND IV INFILTRATED. WAITING ON ASSIST IN POWERGLIDE PRIOR TO TRANSFER TO DAY SURGERY
--- NOTE | 2023-02-07 15:48 | NUR ---
UPDATE POWERGLIDE PLACED. PT TO DAY SURGERY AT THIS TIME.
--- NOTE | 2023-02-07 15:59 | NUR ---
IV SITE MEG INTACT WITH POTASSIUM RIDER INFUSING.
--- NOTE | 2023-02-07 16:37 | NUR ---
PT SPOUSE AT BEDSIDE TO CONSENT FOR ANESTHESIA PT HAS DEMENTIA AND IS UNABLE TO CONSENT.
--- NOTE | 2023-02-07 17:10 | NUR ---
POTASSIUM REPLETION PLACED ON STANDBY PER VERBAL ORDER DR. HAMM. PACU TO RESUME K+ REPLETION POST-OP. LEVOPHED DRIP ORDERED TO HAVE ON STANDBY FOR OR-PER DR. HAMM VERBAL ORDER.
--- NOTE | 2023-02-07 17:17 | NUR ---
SHIFT SUMMARY PT ALERT AND ORIENTED TO SELF. IMPULIVE AT TIMES, PULLING AT LINES AND ATTEMPTING TO GET OUT OF BED. SITTER AT BEDSIDE PRIOR TO PT TRANSFER TO DAY SURGERY. PT UNABLE TO VOID T/O SHIFT. BLADDER SCAN AND STRAIGHT CATH DONE. MD AWARE OF RETENTION. PT BEDREST PER MD ORDER. POWERGLIDE PLACED PRIOR TO DAYSURGERY TRANSFER. PT DIFFICULT IV START, TWO IV INFILTRATIONS. SITES WNL. PT'S AT BEDSIDE AT THIS TIME WAITING FOR PT TO TRANSFER BACK TO ROOM FROM . VSS. OXYGEN SATURAITON MAINTAINED ABOVE 92% ON RA. NO CP OR PRESSURE. PT MEDICATED FOR HIP PAIN,SEE EMAR. PT PETRONA IN DAYSURGERY. WILL UPDATE ONCOMING RN.
[2023-02-07 20:41] LABS: Bun/Creatinine Ratio 13.8 (12.0-20.0); Calcium, Blood 8.9 mg/dL (8.5-10.1); Creatinine, Blood 1.09 mg/dL (0.40-1.00); Potassium, Blood 3.6 mmol/L (3.5-5.5)
[2023-02-08 00:08] VITALS: BP 132/70
[2023-02-08 02:41] VITALS: BP 110/67
[2023-02-08 04:00] VITALS: BP 109/54
[2023-02-08 04:49] LABS: BASOPHILS ABSOLUTE AUTO 0.05 K/mm3 (0.00-0.23); BASOPHILS PERCENT AUTO 1 % (0-2); EOSINOPHILS ABSOLUTE AUTO 0.31 K/mm3 (0.00-0.68); EOSINOPHILS PERCENT AUTO 5 % (0-6); Hematocrit 31.8 % (33.0-51.0); Hemoglobin 10.6 g/dL (11.5-16.0); IMMATURE GRAN ABSOLUTE AUTO 0.02 K/mm3 (0.00-0.10); IMMATURE GRAN PERCENT AUTO 0 % (0-1); LYMPHOCYTES ABSOLUTE AUTO 1.22 K/mm3 (0.84-5.20); LYMPHOCYTES PERCENT AUTO 19 % (21-46); MONOCYTES ABSOLUTE AUTO 0.75 K/mm3 (0.16-1.47); MONOCYTES PERCENT AUTO 12 % (4-13); Mean Corpuscular HGB 29.7 pg (26.0-34.0); Mean Corpuscular HGB Conc 33.3 g/dL (31.5-36.5); Mean Corpuscular Volume 89 fL (80-100); Mean Platelet Volume 12.4 fL (9.1-12.4); NEUTROPHILS ABSOLUTE AUTO 4.13 K/mm3 (1.96-9.15); NEUTROPHILS PERCENT AUTO 64 % (41-73); Platelet Count 80 K/mm3 (150-400); RDW Coefficient Variation 12.9 % (11.7-14.2); RDW Standard Deviation 42.3 fL (35.1-46.3); Red Blood Cell Count 3.57 M/mm3 (3.80-5.20); White Blood Cell Count 6.48 K/mm3 (4.00-11.30)
--- NOTE | 2023-02-08 05:05 | NUR ---
SHIFT SUMMARY PT A&OX2, PLEASANTLY CONFUSED BUT COOPERATIVE WITH CARE. PT HAS BEEN PAINFUL T/O SHIFT, MEDICATING PER EMAR. 1-2 ASSIST TO THE BSC. TOLERATING PO INTAKE. DRESSING TO R HIP C/D/I. SITTER AT BEDSIDE T/O SHIFT. CONT PULSE OX AT BEDSIDE FOR IV PAIN MEDICATION ADMINISTRATION, SATS HAVE BEEN <90% ON RA. BED IN LOWEST POSITION, CALL LIGHT WITHIN REACH.
[2023-02-08 05:16] LABS: Bun/Creatinine Ratio 14.3 (12.0-20.0); Calcium, Blood 8.6 mg/dL (8.5-10.1); Creatinine, Blood 1.19 mg/dL (0.40-1.00); Magnesium, Blood 1.5 mg/dL (1.6-2.4); Potassium, Blood 3.4 mmol/L (3.5-5.5)
[2023-02-08 07:08] VITALS: BP 109/51
[2023-02-08 14:43] VITALS: BP 106/57
--- NOTE | 2023-02-08 16:55 | NUR ---
SHIFT SUMMARY POD 1 R HIP PINNING. PRESSURE TAPE DRESSING IN PLACE TO RIGHT HIP, C/D/I. PATIENT UNABLE TO VERBALIZE PAIN, BUT PAIN PER FLACC SCALE SUGGESTS MOERATE PAIN, MEDICATED PER EMAR PRN, APPEARS TO GIVE RELIEF. PATIENT VERY PLEASANT BUT ONLY ORIENTED TO SELF & . FOLLOWS COMMANDS AND IS COOPERATIVE WITH CARE. UP TO CHAIR & BSC WITH 1-2 P ASSIST & FWW. DOES NOT USE CALL LIGHT. 1:1 SITTER PRESENT D/T PREVIOUSLY ATTEMPTING TO GET UP OOB UNASSISTED.
[2023-02-08 20:10] VITALS: BP 131/79
[2023-02-09 03:30] VITALS: BP 120/57
--- NOTE | 2023-02-09 05:40 | NUR ---
SHIFT SUMMARY PT HAS RESTED MOST OF THE NIGHT, PT HAS NOT ATTEMPTED TO GET OOB WITHOUT ASSISTANCE. PT PLESANTLY CONFUSED, AND HAS BEEN COOPERATIVE WITH CARE. PT HAS AMBULATED FROM THE CHAIR TO THE BED AND TO THE C THIS SHIFT. PT REQUIRES TWO PERSON MAX ASSIST WITH FWW/GAIT BELT. PT WEAK AND HAS A DIFFICULT TIME FOLLOWING VERBAL CUES. VITALS ARE STABLE. DRESSING INTACT TO SURGICAL SITE. DENIES PAIN WHEN ASKED. BED IN LOWEST POSITION, CALL LIGHT WITHIN REACH.
[2023-02-09] MEDS ORDERED: METO25ER PO (10:18)
[2023-02-09] MEDS ORDERED: Synthroid200 MCG PO (10:19)
[2023-02-09 11:08] LABS: Bun/Creatinine Ratio 14.8 (12.0-20.0); Calcium, Blood 8.4 mg/dL (8.5-10.1); Creatinine, Blood 1.22 mg/dL (0.40-1.00); Potassium, Blood 3.9 mmol/L (3.5-5.5)
--- NOTE | 2023-02-09 11:22 | NUR ---
SPOKE WITH PT'S , HE HAS AN APPOINTMENT AT 1330 AND PLANS TO BE HERE TO GENERAL SERVICE OFFICER PT AT 1430
[2023-02-09] MEDS ORDERED: CEFD300 PO (13:47)
--- NOTE | 2023-02-09 13:57 | NUR ---
PER DR. KATE PAGAN FOR PT TO CONTINUE TAKING HOME DOSES OF EXELON, CYMBALTA, MIRALAX, AND RANOLAZINE.
--- NOTE | 2023-02-09 14:46 | NUR ---
DISCHARGE: PT IN ROOM AT ABOUT 1430. PACKET PRINTED AND PT /PT EDUCATED. PT GIVEN EXTRA AQUCEL DRESSINGS. PLAN IS FOR HOME WITH HOME HEALTH. MEDS FAXED TO [facility]. THIS RN WENT TO [employer] AND DISCOVERED PT HAD ALREADY PULLED IT OUT AND IT WAS SITTING IN HER LAP UNDER HER GOWN. IV SITE AT R UPPER ARM APPEARS WNL,NO BLEED NOTED. TIP INTACT. PT LEFT UNIT VIA WHEELCHAIR WITH AND CARMELO CHAVEZ AT 1445
== END 2023-02-09 14:45 | disposition home or self-care (01) | DRG 481 ==
LOC: ER 14:56 → SURS 19:26
PROVIDERS: Anesthesiology; Emergency Medicine; Internal Medicine; Nurse Practitioner Acute Care; Orthopaedic Surgery; Student in an Organized Health Care Education/Training Program; ADMIT Internal Medicine
PROC: 0QS634Z Reposition Right Upper Femur with Internal Fixation Device, Percutaneous Approach (ICD-10-PCS; principal; 2023-02-07 15:30)
DX: S72.011A Unspecified intracapsular fracture of right femur, initial encounter for closed fracture (principal); N39.0 Urinary tract infection, site not specified; M19.90 Unspecified osteoarthritis, unspecified site; I12.9 Hypertensive chronic kidney disease with stage 1 through stage 4 chronic kidney disease, or unspecified chronic kidney disease; E87.6 Hypokalemia; E03.9 Hypothyroidism, unspecified; F32.A Depression, unspecified; G43.909 Migraine, unspecified, not intractable, without status migrainosus; N18.30 Chronic kidney disease, stage 3 unspecified; G30.9 Alzheimer's disease, unspecified; F02.80 Dementia in other diseases classified elsewhere, unspecified severity, without behavioral disturbance, psychotic disturbance, mood disturbance, and anxiety; I25.10 Atherosclerotic heart disease of native coronary artery without angina pectoris; K22.2 Esophageal obstruction; K21.9 Gastro-esophageal reflux disease without esophagitis; Z96.653 Presence of artificial knee joint, bilateral; Z96.642 Presence of left artificial hip joint; Z95.5 Presence of coronary angioplasty implant and graft; W06.XXXA Fall from bed, initial encounter; I25.2 Old myocardial infarction; Z88.0 Allergy status to penicillin; Z88.1 Allergy status to other antibiotic agents; Z88.5 Allergy status to narcotic agent; Z88.8 Allergy status to other drugs, medicaments and biological substances; Z79.82 Long term (current) use of aspirin; Z79.899 Other long term (current) drug therapy; Z79.890 Hormone replacement therapy; Z90.49 Acquired absence of other specified parts of digestive tract; Z90.710 Acquired absence of both cervix and uterus
CPT/HCPCS: 36415; 72192; 73502; 80048; 80053; 81001; 82947; 83735; 85025; 85027; 87077; 87086; 87186; 93005; 93010; 94762; 96365; 97110; 97116; 97162; 97166; 97535; 99285-25; A9270; C1713; C1769; G0480; J0690; J0696; J1170; J1650; J1885; J2405; J2704; J3010; J3475; J3480; J7030; J7050; J7120

== ENCOUNTER 2023-03-13 02:34 | Emergency (ER) | payer MEDICARE, OTHER ==
[~2023-03-13] VITALS: Ht 157.5 cm; Wt 70.3 kg
[~2023-03-13 02:34] MED LIST changes: +ATOR40TA PO; +CEFD300 PO; +COLACE100 MG PO; +EUTHYROX100 MC1 PO; +ISOSORBIDE MONO30 MG PO; +RANOLAZINE ER500 M2 PO; +SPIRONOLACTONE25 MG PO; +Synthroid200 MCG PO
[2023-03-13 03:22] LABS: BASOPHILS ABSOLUTE AUTO 0.04 K/mm3 (0.00-0.23); BASOPHILS PERCENT AUTO 1 % (0-2); EOSINOPHILS ABSOLUTE AUTO 0.27 K/mm3 (0.00-0.68); EOSINOPHILS PERCENT AUTO 7 % (0-6); Hematocrit 35.8 % (33.0-51.0); Hemoglobin 11.6 g/dL (11.5-16.0); IMMATURE GRAN ABSOLUTE AUTO 0.01 K/mm3 (0.00-0.10); IMMATURE GRAN PERCENT AUTO 0 % (0-1); LYMPHOCYTES ABSOLUTE AUTO 1.08 K/mm3 (0.84-5.20); LYMPHOCYTES PERCENT AUTO 30 % (21-46); MONOCYTES ABSOLUTE AUTO 0.62 K/mm3 (0.16-1.47); MONOCYTES PERCENT AUTO 17 % (4-13); Mean Corpuscular HGB 28.4 pg (26.0-34.0); Mean Corpuscular HGB Conc 32.4 g/dL (31.5-36.5); Mean Corpuscular Volume 88 fL (80-100); Mean Platelet Volume 12.1 fL (9.1-12.4); NEUTROPHILS ABSOLUTE AUTO 1.64 K/mm3 (1.96-9.15); NEUTROPHILS PERCENT AUTO 45 % (41-73); Platelet Count 134 K/mm3 (150-400); RDW Coefficient Variation 13.7 % (11.7-14.2); RDW Standard Deviation 43.6 fL (35.1-46.3); Red Blood Cell Count 4.09 M/mm3 (3.80-5.20); White Blood Cell Count 3.66 K/mm3 (4.00-11.30)
[2023-03-13 03:35] LABS: Albumin, Blood 3.2 g/dL (3.4-5.0); Albumin/Globulin Ratio 0.9 (0.8-1.8); Bilirubin, Total 1.3 mg/dL (0.1-1.0); Bun/Creatinine Ratio 12.2 (12.0-20.0); Calcium, Blood 10.1 mg/dL (8.5-10.1); Creatinine, Blood 1.15 mg/dL (0.40-1.00); Globulin, Blood 3.7 g/dL (2.2-4.0); Potassium, Blood 3.1 mmol/L (3.5-5.5); Total Protein, Blood 6.9 g/dL (6.4-8.2)
[2023-03-13 05:15] VITALS: BP 87/66
== END 2023-03-13 05:57 | disposition left against medical advice (07) ==
LOC: ER 02:34
PROVIDERS: Emergency Medicine
DX: R07.9 Chest pain, unspecified (principal); E03.9 Hypothyroidism, unspecified; I25.10 Atherosclerotic heart disease of native coronary artery without angina pectoris; F03.90 Unspecified dementia, unspecified severity, without behavioral disturbance, psychotic disturbance, mood disturbance, and anxiety; N18.30 Chronic kidney disease, stage 3 unspecified; F32.A Depression, unspecified; Z79.899 Other long term (current) drug therapy; Z95.5 Presence of coronary angioplasty implant and graft; Z88.0 Allergy status to penicillin; Z88.1 Allergy status to other antibiotic agents; Z88.5 Allergy status to narcotic agent; Z88.8 Allergy status to other drugs, medicaments and biological substances; Z88.2 Allergy status to sulfonamides; Z79.82 Long term (current) use of aspirin
CPT/HCPCS: 71045; 80053; 84484; 85025; 93005; 93010; 99285-25

== ENCOUNTER 2023-04-19 20:20 | Emergency (ER) | payer MEDICARE, OTHER ==
[~2023-04-19] VITALS: Ht 160 cm; Wt 56.7 kg
[2023-04-19 20:26] VITALS: BP 146/90
== END 2023-04-20 05:43 | disposition left against medical advice (07) ==
LOC: ER 20:20
DX: R10.10 Upper abdominal pain, unspecified (principal); Z53.21 Procedure and treatment not carried out due to patient leaving prior to being seen by health care provider
CPT/HCPCS: 99281

== ENCOUNTER → 2023-04-27 | Outpatient (CLI) | payer MEDICARE, OTHER ==
[2023-04-27 16:19] LABS: Albumin/Globulin Ratio 1.1 (0.8-1.8); Bilirubin, Total 0.7 mg/dL (0.1-1.0); Bun/Creatinine Ratio 8.7 (12.0-20.0); Calcium, Blood 8.8 mg/dL (8.5-10.1); Creatinine, Blood 1.27 mg/dL (0.40-1.00); Globulin, Blood 2.7 g/dL (2.2-4.0); Potassium, Blood 3.5 mmol/L (3.5-5.5); Thyroid Stimulating Hormone 0.399 uIU/mL (0.360-4.800); Total Protein, Blood 5.7 g/dL (6.4-8.2)
== END ==
LOC: LAB 10:00 → LAB SHORT 10:00
PROVIDERS: Internal Medicine
DX: E03.9 Hypothyroidism, unspecified (principal); I10 Essential (primary) hypertension
CPT/HCPCS: 80053; 84443

== ENCOUNTER 2023-05-14 20:35 | Emergency (ER) | payer MEDICARE, OTHER ==
[~2023-05-14] VITALS: Ht 165.1 cm; Wt 68.0 kg
[2023-05-14 21:18] LABS: BASOPHILS ABSOLUTE AUTO 0.03 K/mm3 (0.00-0.23); BASOPHILS PERCENT AUTO 1 % (0-2); EOSINOPHILS ABSOLUTE AUTO 0.15 K/mm3 (0.00-0.68); EOSINOPHILS PERCENT AUTO 3 % (0-6); Hematocrit 34.8 % (33.0-51.0); Hemoglobin 11.6 g/dL (11.5-16.0); IMMATURE GRAN ABSOLUTE AUTO 0.02 K/mm3 (0.00-0.10); IMMATURE GRAN PERCENT AUTO 0 % (0-1); LYMPHOCYTES ABSOLUTE AUTO 1.78 K/mm3 (0.84-5.20); LYMPHOCYTES PERCENT AUTO 32 % (21-46); MONOCYTES ABSOLUTE AUTO 0.77 K/mm3 (0.16-1.47); MONOCYTES PERCENT AUTO 14 % (4-13); Mean Corpuscular HGB 29.5 pg (26.0-34.0); Mean Corpuscular HGB Conc 33.3 g/dL (31.5-36.5); Mean Corpuscular Volume 89 fL (80-100); Mean Platelet Volume 11.4 fL (9.1-12.4); NEUTROPHILS ABSOLUTE AUTO 2.75 K/mm3 (1.96-9.15); NEUTROPHILS PERCENT AUTO 50 % (41-73); Platelet Count 149 K/mm3 (150-400); RDW Coefficient Variation 15.1 % (11.7-14.2); RDW Standard Deviation 49.6 fL (35.1-46.3); Red Blood Cell Count 3.93 M/mm3 (3.80-5.20)
[2023-05-14 21:51] LABS: Albumin, Blood 3.1 g/dL (3.4-5.0); Albumin/Globulin Ratio 0.9 (0.8-1.8); Bilirubin, Total 0.7 mg/dL (0.1-1.0); Bun/Creatinine Ratio 12.2 (12.0-20.0); Calcium, Blood 9.2 mg/dL (8.5-10.1); Creatinine, Blood 1.39 mg/dL (0.40-1.00); Globulin, Blood 3.5 g/dL (2.2-4.0); Potassium, Blood 3.2 mmol/L (3.5-5.5); Total Protein, Blood 6.6 g/dL (6.4-8.2)
[2023-05-14 22:00] VITALS: BP 144/79
[2023-05-14] MEDS ORDERED: ACETAMINOPHEN500 MG PO (23:14)
== END 2023-05-15 00:59 | disposition home or self-care (01) ==
LOC: ER 20:35
PROVIDERS: Emergency Medicine
DX: R07.89 Other chest pain (principal); F03.90 Unspecified dementia, unspecified severity, without behavioral disturbance, psychotic disturbance, mood disturbance, and anxiety; R10.811 Right upper quadrant abdominal tenderness; N18.30 Chronic kidney disease, stage 3 unspecified; E03.9 Hypothyroidism, unspecified; I25.10 Atherosclerotic heart disease of native coronary artery without angina pectoris; Z90.49 Acquired absence of other specified parts of digestive tract; Z88.0 Allergy status to penicillin; Z88.1 Allergy status to other antibiotic agents; Z88.5 Allergy status to narcotic agent; Z88.8 Allergy status to other drugs, medicaments and biological substances; Z79.82 Long term (current) use of aspirin; Z79.899 Other long term (current) drug therapy; Z79.890 Hormone replacement therapy
CPT/HCPCS: 71045; 80053; 83880; 84484; 85025; 93005; 93010; 99285-25

== ENCOUNTER 2023-05-17 16:42 | Emergency (ER) | payer MEDICARE, OTHER ==
[~2023-05-17] VITALS: Ht 170.2 cm; Wt 72.6 kg
[~2023-05-17 16:42] MED LIST changes: +ACETAMINOPHEN500 MG PO
[2023-05-17 18:53] LABS: Source, Urine Straight Cath
[2023-05-17 18:56] LABS: BASOPHILS ABSOLUTE AUTO 0.03 K/mm3 (0.00-0.23); BASOPHILS PERCENT AUTO 1 % (0-2); EOSINOPHILS ABSOLUTE AUTO 0.16 K/mm3 (0.00-0.68); EOSINOPHILS PERCENT AUTO 4 % (0-6); Hematocrit 31.7 % (33.0-51.0); Hemoglobin 10.4 g/dL (11.5-16.0); IMMATURE GRAN ABSOLUTE AUTO 0.01 K/mm3 (0.00-0.10); IMMATURE GRAN PERCENT AUTO 0 % (0-1); LYMPHOCYTES ABSOLUTE AUTO 1.65 K/mm3 (0.84-5.20); LYMPHOCYTES PERCENT AUTO 39 % (21-46); MONOCYTES ABSOLUTE AUTO 0.63 K/mm3 (0.16-1.47); MONOCYTES PERCENT AUTO 15 % (4-13); Mean Corpuscular HGB 29.5 pg (26.0-34.0); Mean Corpuscular HGB Conc 32.8 g/dL (31.5-36.5); Mean Corpuscular Volume 90 fL (80-100); Mean Platelet Volume 11.6 fL (9.1-12.4); NEUTROPHILS ABSOLUTE AUTO 1.71 K/mm3 (1.96-9.15); NEUTROPHILS PERCENT AUTO 41 % (41-73); Platelet Count 130 K/mm3 (150-400); RDW Coefficient Variation 15.1 % (11.7-14.2); RDW Standard Deviation 49.6 fL (35.1-46.3); Red Blood Cell Count 3.53 M/mm3 (3.80-5.20); White Blood Cell Count 4.19 K/mm3 (4.00-11.30)
[2023-05-17 18:57] LABS: Appearance, Urine Clear (Clear); Bilirubin, Urine Neg (Neg); Blood, Urine Neg (Neg); Color, Urine Yellow (P-Yellow); Glucose Qualitative, Urine Neg (Neg); Ketones, Urine Neg (Neg); Leukocyte Esterase, Urine Neg (Neg); Nitrite, Urine Neg (Neg); Protein, Urine Neg (Neg); Specific Gravity, Urine 1.015 (1.003-1.022); Urobilinogen, Urine NORM (Normal)
[2023-05-17 19:00] VITALS: BP 132/78
[2023-05-17 19:20] LABS: Albumin, Blood 2.9 g/dL (3.4-5.0); Albumin/Globulin Ratio 0.9 (0.8-1.8); Bilirubin, Total 0.5 mg/dL (0.1-1.0); Bun/Creatinine Ratio 10.5 (12.0-20.0); Calcium, Blood 8.6 mg/dL (8.5-10.1); Creatinine, Blood 1.33 mg/dL (0.40-1.00); Globulin, Blood 3.2 g/dL (2.2-4.0); Potassium, Blood 3.1 mmol/L (3.5-5.5); Total Protein, Blood 6.1 g/dL (6.4-8.2)
== END 2023-05-17 20:25 | disposition home or self-care (01) ==
LOC: ER 16:42
PROVIDERS: Emergency Medicine
DX: R10.9 Unspecified abdominal pain (principal); R07.9 Chest pain, unspecified; F03.90 Unspecified dementia, unspecified severity, without behavioral disturbance, psychotic disturbance, mood disturbance, and anxiety; E03.9 Hypothyroidism, unspecified; I25.10 Atherosclerotic heart disease of native coronary artery without angina pectoris; N18.30 Chronic kidney disease, stage 3 unspecified; F32.A Depression, unspecified; Z88.0 Allergy status to penicillin; Z88.1 Allergy status to other antibiotic agents; Z88.5 Allergy status to narcotic agent; Z88.8 Allergy status to other drugs, medicaments and biological substances; Z79.899 Other long term (current) drug therapy; Z79.82 Long term (current) use of aspirin; Z87.891 Personal history of nicotine dependence
CPT/HCPCS: 51701; 71045; 80053; 81003; 85025; 93005; 93010; 99285-25

== ENCOUNTER 2023-06-08 03:51 | Inpatient (IN) | payer MEDICARE, OTHER ==
[~2023-06-08] VITALS: Ht 160 cm; Wt 59.9 kg
[2023-06-08 04:40] LABS: BASOPHILS ABSOLUTE AUTO 0.04 K/mm3 (0.00-0.23); BASOPHILS PERCENT AUTO 1 % (0-2); EOSINOPHILS ABSOLUTE AUTO 0.15 K/mm3 (0.00-0.68); EOSINOPHILS PERCENT AUTO 3 % (0-6); Hematocrit 36.6 % (33.0-51.0); Hemoglobin 11.8 g/dL (11.5-16.0); IMMATURE GRAN ABSOLUTE AUTO 0.02 K/mm3 (0.00-0.10); IMMATURE GRAN PERCENT AUTO 0 % (0-1); LYMPHOCYTES ABSOLUTE AUTO 1.76 K/mm3 (0.84-5.20); LYMPHOCYTES PERCENT AUTO 34 % (21-46); MONOCYTES ABSOLUTE AUTO 0.68 K/mm3 (0.16-1.47); MONOCYTES PERCENT AUTO 13 % (4-13); Mean Corpuscular HGB 29.9 pg (26.0-34.0); Mean Corpuscular HGB Conc 32.2 g/dL (31.5-36.5); Mean Corpuscular Volume 93 fL (80-100); Mean Platelet Volume 11.4 fL (9.1-12.4); NEUTROPHILS ABSOLUTE AUTO 2.49 K/mm3 (1.96-9.15); NEUTROPHILS PERCENT AUTO 49 % (41-73); Platelet Count 152 K/mm3 (150-400); RDW Coefficient Variation 14.1 % (11.7-14.2); RDW Standard Deviation 48.1 fL (35.1-46.3); Red Blood Cell Count 3.94 M/mm3 (3.80-5.20); White Blood Cell Count 5.14 K/mm3 (4.00-11.30)
[2023-06-08 04:43] LABS: Source, Urine Foley catheter
[2023-06-08 04:48] LABS: Bilirubin, Urine Neg (Neg); Blood, Urine Neg (Neg); Glucose Qualitative, Urine Neg (Neg); Ketones, Urine Neg (Neg); Leukocyte Esterase, Urine Neg (Neg); Nitrite, Urine Neg (Neg); Protein, Urine Neg (Neg); Urobilinogen, Urine NORM (Normal)
[2023-06-08 05:09] LABS: Albumin, Blood 3.1 g/dL (3.4-5.0); Albumin/Globulin Ratio 0.8 (0.8-1.8); Bilirubin, Total 0.5 mg/dL (0.1-1.0); Bun/Creatinine Ratio 8.8 (12.0-20.0); Calcium, Blood 9.3 mg/dL (8.5-10.1); Creatinine, Blood 1.36 mg/dL (0.40-1.00); Globulin, Blood 3.8 g/dL (2.2-4.0); Potassium, Blood 3.7 mmol/L (3.5-5.5); Total Protein, Blood 6.9 g/dL (6.4-8.2)
[2023-06-08 05:11] LABS: Appearance, Urine Clear (Clear); Color, Urine Pale Yellow (P-Yellow)
[2023-06-08 10:05] LABS: Anti-Xa UFH, PHA Monitoring <0.10 IU/mL; International Normalized Ratio 1.04; Prothrombin Time Results 10.9 Sec (9.7-11.5)
--- NOTE | 2023-06-08 13:14 | NUR ---
Attempted to clarify code status. Pt is not able to answer code options. Spoke with Tammy at [facility] ([facility]), Eleuterio cancino [facility] does not have a POLST on file. Tammy stated, Pt's spouse days prior to pt moving to [facility] and pt is not able to comprehend her spouse passing. Additionally she states, pt is constantly packing her belongings thinking she needs to go home. Point of contact is son, Leslie Mayers . Left message for son to return this PC RN's phone call. Will continue to attempt to reach son. Primary RN updated. Per report [facility] notified son of pt's transfer to ED last night.
--- NOTE | 2023-06-08 15:03 | NUR ---
Spoke with son, Leslie by phone, he request pt be DNR with full medical treatment. This PC RN phoned Dr. Winchester to inform her of sons request for DNR. Dr. Winchester provided verbal order to change code status to DNR. This PC RN entered order and updated primary RN of change.
--- NOTE | 2023-06-08 16:22 | NUR ---
DAYSHIFT SUMMARY Patient alert & oriented x3. IV Heparin infusing continously. Dr. Jacome came by to assess plan is to attempt to resolve clot wiht coagulation, if unsuccessful plan to go to laboratory technologist. Patient agreed to this plan, and signed consent with RN witness. Patient currently NPO, MD to re-evaluate in AM to determine if laboratory technologist is needed, or DC NPO orders. VSS. Will contine plan of care.
[2023-06-08 20:07] VITALS: BP 107/59
[2023-06-09 01:18] LABS: BASOPHILS ABSOLUTE AUTO 0.05 K/mm3 (0.00-0.23); BASOPHILS PERCENT AUTO 1 % (0-2); EOSINOPHILS ABSOLUTE AUTO 0.21 K/mm3 (0.00-0.68); EOSINOPHILS PERCENT AUTO 4 % (0-6); Hematocrit 35.9 % (33.0-51.0); Hemoglobin 11.7 g/dL (11.5-16.0); IMMATURE GRAN ABSOLUTE AUTO 0.01 K/mm3 (0.00-0.10); IMMATURE GRAN PERCENT AUTO 0 % (0-1); LYMPHOCYTES ABSOLUTE AUTO 1.36 K/mm3 (0.84-5.20); LYMPHOCYTES PERCENT AUTO 28 % (21-46); MONOCYTES ABSOLUTE AUTO 0.56 K/mm3 (0.16-1.47); MONOCYTES PERCENT AUTO 12 % (4-13); Mean Corpuscular HGB 30.1 pg (26.0-34.0); Mean Corpuscular HGB Conc 32.6 g/dL (31.5-36.5); Mean Corpuscular Volume 92 fL (80-100); NEUTROPHILS ABSOLUTE AUTO 2.66 K/mm3 (1.96-9.15); NEUTROPHILS PERCENT AUTO 55 % (41-73); Platelet Count 145 K/mm3 (150-400); RDW Coefficient Variation 14.2 % (11.7-14.2); RDW Standard Deviation 47.7 fL (35.1-46.3); Red Blood Cell Count 3.89 M/mm3 (3.80-5.20); White Blood Cell Count 4.85 K/mm3 (4.00-11.30)
[2023-06-09 01:34] LABS: Albumin, Blood 2.7 g/dL (3.4-5.0); Albumin/Globulin Ratio 0.8 (0.8-1.8); Bilirubin, Total 0.8 mg/dL (0.1-1.0); Bun/Creatinine Ratio 8.2 (12.0-20.0); Calcium, Blood 8.7 mg/dL (8.5-10.1); Creatinine, Blood 1.22 mg/dL (0.40-1.00); Globulin, Blood 3.3 g/dL (2.2-4.0)
--- NOTE | 2023-06-09 05:08 | NUR ---
SHIFT SUMMARY JULIOCESAR WAS DROWSY AND ORIENTED X 2-3 ON ASSESSMENT. PT HAS BEEN KEPT NPO TONIGHT DIRECTED. PT STATES THAT HER ABD PAIN ISNT BOTHERING HER, AND HAS SLEPT WELL ALL SHIFT. HEPARIN INFUSION STARTED WITH DAY SHIFT JUAN DAVID, TITRATED WITH JUAN BALBUENA PER PHARMACY/LAB. NO ACUTE EVENTS TONIGHT OR OBVIOUS CHANGES IN CONDITION, AND NO ALERTS FROM TELEMETRY. ULLOA DRAINING YELLOW URINE TO GRAVITY. PT SLEEPING IN BED AT A LOW POSITION WITH THE CALL LIGHT IN REACH, WILL CONTINUE TO MONITOR.
[2023-06-09 05:28] VITALS: BP 154/75
[2023-06-09 07:09] VITALS: BP 110/67
--- NOTE | 2023-06-09 12:22 | NUR ---
Spiritual Care Visit. Pt. is resting in bed, but responds when I enter the room. Pt. displayed evidence of confusion and was on soft wrist restraints. Pt. did display evidence of recognizing this automotive finance manager, and was pleasantly confused for our visit. Prayed with Pt. Pt. prayed along with this automotive finance manager and verbalized gratitude for the spiritual care visit.
[2023-06-09 14:45] VITALS: BP 126/82
--- NOTE | 2023-06-09 15:21 | NUR ---
Left message for pt's son Leslie, request return call. Pt has been pulling out IV's today, and generally non-compliant. She stated she just "Wants to " according to bedside RN. Will continue attempting to reach son.
--- NOTE | 2023-06-09 15:42 | NUR ---
Spiritual Care Visit. Pt. is awake and sitting up in bed. Pt. displayed evidence of less confusion than at my earlier visit. Pt. verbalized that she had a visit from one of her [employer]. Pstoral encouragement is given. Pt. verbalised gratitude for the spiritual care visit.
--- NOTE | 2023-06-09 17:29 | NUR ---
According to bedside RN, the pt has pulled out 5 IV's today, so is now in restraints for her safety. Pt's son Leslie understands this, and also verbalizes his belief that the patient gave up somewhat after her 2 months ago. At this time, pt is being started on a clear liquid diet to see if her illeus will resolve. In the meantime, the pt's son Leslie would like to return pt home with hospice upon discharge.
[2023-06-09 20:26] VITALS: BP 128/65
--- NOTE | 2023-06-10 03:46 | NUR ---
SHIFT YIN, PT RESTING IN BED AT THIS TIME, PT APPEARS TO BE COMFOATABL, RESPSPERATIONS EVEN AND UNLABORED. PT HAS ON BILAT WRIST RESTRAINTS. PT EARLER IN NIGHT ABLE TO PULL OUT IV TO RIGHT ARM WITH RESTRAINTS ON. RETRAINTS HAVE TO BE RE TIGHTED FREQUENTLY WHEN PT AWAKE. PT AGREES WITH ALL YOU ARE TELLING HER TO WHY SHE HAS RESTRINTS ON AND WHY NOT TO PULL OUT IVS SO SHE CAN GET HER MEDS. BUT CONTINUES TO TRY TO PULL OUT IVS AND USES FEET TO TRY TO PULL OUT ULLOA. PT VERY AGREABLE BUT VERY FORGETFULL. PT HAS SO FAR PULLED OUT 7 IVS AND 1 ULLOA. PT ALSO TRYING TO GET OUT OF THE BED WHEN AWAKE. PT MEDICATED FOR PAIN X 2 AND GIVEN IM ZYPREXA. CALL LIGHT IN PT REACH , BED ALARM ON.
[2023-06-10 05:23] VITALS: BP 130/83
[2023-06-10 05:27] LABS: BASOPHILS ABSOLUTE AUTO 0.06 K/mm3 (0.00-0.23); BASOPHILS PERCENT AUTO 1 % (0-2); EOSINOPHILS ABSOLUTE AUTO 0.21 K/mm3 (0.00-0.68); EOSINOPHILS PERCENT AUTO 4 % (0-6); Hematocrit 38.1 % (33.0-51.0); Hemoglobin 12.2 g/dL (11.5-16.0); IMMATURE GRAN ABSOLUTE AUTO 0.01 K/mm3 (0.00-0.10); IMMATURE GRAN PERCENT AUTO 0 % (0-1); LYMPHOCYTES ABSOLUTE AUTO 1.95 K/mm3 (0.84-5.20); LYMPHOCYTES PERCENT AUTO 35 % (21-46); MONOCYTES ABSOLUTE AUTO 0.66 K/mm3 (0.16-1.47); MONOCYTES PERCENT AUTO 12 % (4-13); Mean Corpuscular HGB 30.3 pg (26.0-34.0); Mean Corpuscular Volume 95 fL (80-100); Mean Platelet Volume 10.6 fL (9.1-12.4); NEUTROPHILS ABSOLUTE AUTO 2.71 K/mm3 (1.96-9.15); NEUTROPHILS PERCENT AUTO 48 % (41-73); Platelet Count 127 K/mm3 (150-400); RDW Coefficient Variation 13.7 % (11.7-14.2); RDW Standard Deviation 47.8 fL (35.1-46.3); Red Blood Cell Count 4.03 M/mm3 (3.80-5.20)
[2023-06-10 05:56] LABS: Bun/Creatinine Ratio 10.6 (12.0-20.0); Calcium, Blood 8.7 mg/dL (8.5-10.1); Creatinine, Blood 1.23 mg/dL (0.40-1.00)
[2023-06-10 10:31] VITALS: BP 130/88
--- NOTE | 2023-06-10 11:30 | NUR ---
Spiritual Care Visit. Pt. is awake in bed display evidence of confusion and agitation. When I sit at bedside Pt. displays evidence of greater peace and a calmer mood. Considered matters of carroll and family. This panel maker had supported the Pt. and family when her spouse passed earlier this fall. Scripture is read and memories are surfaced. Prayed with the Pt. Pt. verbalized gratitude for the spiritual care visit. Will remain available.
--- NOTE | 2023-06-10 14:38 | NUR ---
Pt will be transitioning to comfort care today, and discharging home with hospice. Pt's son Leslie is in agreement with this plan, as he states the pt has continued to decline since her approx 2 months ago. She lives at [facility] in [place]. No further IV's needed, and bermudez catheter to be removed. Pt will not receive further anticoagulation, and the focus will be pt's comfort. Pt has FAST score of 7c KPS score of 20-30% Science Liaison aware and attempting to put together discharge plan with [facility] and [facility].
[2023-06-10 14:57] VITALS: BP 115/68
--- NOTE | 2023-06-10 18:35 | NUR ---
SHIFT SUMMARY PT HAD BEEN IN BILAT WRIST RESTRAINTS MOST OF SHIFT. PALLIATIVE CARE RN, MD & FAMILY DISCUSSED PLAN & PT MADE COMFORT CARE AT 1500. PT MEDICATED PER COMFORT CARE ORDERS PER EMAR WITH GOOD EFFECT. PT RESTING COMFORTABLY AND RESTRAINTS REMOVED. RESP EVEN & UNLABORED. PLAN IS TO RETURN TO [facility].
--- NOTE | 2023-06-10 21:22 | NUR ---
NO EDUCATION GIVEN TO PT PER PROTOCOL DUE TO PT SLEEPING AT THIS TIME. PT IS ALSO CONFUSED AND WILL NOT BE ABLE TO UNDERSTAND EDUCATION AT THIS TIME.
--- NOTE | 2023-06-11 04:17 | NUR ---
SHIFT SUMMARY PT HAS BEEN ASLEEP THE WHOLE SHIFT TONIGHT. PT HAS CALL LIGHT WITHIN HER REACH.
--- NOTE | 2023-06-11 05:49 | NUR ---
MORNING LABS HAVE BEEN CANCELLED PER DR LOVE.
--- NOTE | 2023-06-11 14:12 | NUR ---
DISCHARGE SUMMARY PATIENT HAS BEEN ASLEEP AND NOT ORIENTED THIS SHIFT. PATIENT IS ON COMFORT CARE. PATIENT HAS BEEN ASLEEP ALL SHIFT. MEDICATIONS WERE NOT GIVEN AND REFUSED. PATIENTS SON CAME AND PICKED UP PATIENT FOR DISCHARGING HOME ON HOSPICE CARE. ULLOA LEFT IN PLACE PER SONS REQUEST.
== END 2023-06-11 14:25 | disposition hospice, home (50) | DRG 393 ==
LOC: ER 03:51 → ERHOLD 08:51 → MEDS 08:51
PROVIDERS: Emergency Medicine; Internal Medicine; Student in an Organized Health Care Education/Training Program; ADMIT Internal Medicine
DX: K55.059 Acute (reversible) ischemia of intestine, part and extent unspecified (principal); I81 Portal vein thrombosis; E87.20 Acidosis, unspecified; F03.918 Unspecified dementia, unspecified severity, with other behavioral disturbance; F03.93 Unspecified dementia, unspecified severity, with mood disturbance; R62.7 Adult failure to thrive; Z51.5 Encounter for palliative care; Z66 Do not resuscitate; N18.30 Chronic kidney disease, stage 3 unspecified; D69.6 Thrombocytopenia, unspecified; I25.10 Atherosclerotic heart disease of native coronary artery without angina pectoris; G43.909 Migraine, unspecified, not intractable, without status migrainosus; M19.90 Unspecified osteoarthritis, unspecified site; I12.9 Hypertensive chronic kidney disease with stage 1 through stage 4 chronic kidney disease, or unspecified chronic kidney disease; E03.9 Hypothyroidism, unspecified; Z79.890 Hormone replacement therapy; Z88.0 Allergy status to penicillin; Z88.5 Allergy status to narcotic agent; Z88.1 Allergy status to other antibiotic agents; Z88.8 Allergy status to other drugs, medicaments and biological substances; Z79.82 Long term (current) use of aspirin; Z95.5 Presence of coronary angioplasty implant and graft; Z96.642 Presence of left artificial hip joint; Z96.652 Presence of left artificial knee joint; Z87.891 Personal history of nicotine dependence; Z78.1 Physical restraint status; Z68.27 Body mass index [BMI] 27.0-27.9, adult
CPT/HCPCS: 36415; 51702; 51798; 74177; 80048; 80053; 81003; 83605; 83690; 85025; 85520; 85610; 85730; 87040; 93005; 93010; 96365; 96375; 99285-25; A9270; J1170; J1630; J1644; J1790; J2405; J7030; Q9967